=== PATIENT | male | born 1960 | race Caucasian/White ===

== ENCOUNTER 2021-09-08 16:47 | Outpatient (REF) | payer OTHER, SELFPAY | END 2021-09-08 16:48 | disposition home or self-care (01) | LOC: HO.LAB 16:47 | PROVIDERS: Visit Provider Physician Assistant Medical | DX: R30.0 Dysuria (principal) | CPT/HCPCS: 87086 ==

== ENCOUNTER 2022-01-17 10:08 | Emergency (ER) | payer OTHER, SELFPAY ==
--- NOTE | ~2022-01-17 | CT_ITS ---
EXAMINATION: CT ABDOMEN AND PELVIS WITH CONTRAST CLINICAL INFORMATION: Left lower quadrant pain and diarrhea COMPARISON: Previous CT of the abdomen and pelvis July 2017 and ultrasound of the abdomen August 2018 TECHNIQUE: Multidetector volumetric images were obtained from the superior aspect of the liver through the pubic symphysis following administration 85 mL of Omnipaque 350 intravenous contrast. Sagittal and coronal reformatted images were obtained on the technologist's workstation. Oral contrast: Yes This CT examination was performed using dose optimization techniques as appropriate, variously including the following: *Automated exposure control *Adjustment of mA and/or kV according to patient size (this includes techniques or standardized protocols for targeted exams where dose is matched to indication/reason for exam; i.e. extremities or head) *Use of iterative reconstruction technique DLP: 550 mGy-cm FINDINGS: LUNG BASES: The visualized lung bases are unremarkable. LIVER, GALLBLADDER, AND BILIARY TREE: There is a small 1 cm cyst in the medial segment of the left lobe of the liver axial image 18 series 3. The liver is otherwise unremarkable. There is question of a tiny gallstone in the gallbladder. The gallbladder is otherwise unremarkable. There is no biliary duct dilatation. PANCREAS: Unremarkable. SPLEEN: Unremarkable. ADRENAL GLANDS: Unremarkable. KIDNEYS AND URETERS: There are multiple bilateral low-attenuation renal lesions compatible with cysts. There is a 5 x 10 mm lesion exophytic to the lateral midpole right kidney. Hounsfield units postcontrast measure 61 not compatible with a simple cyst. This uncertain whether this represents a complex cyst or solid lesion. This is similar in size to July 2017 exam. There is a small nonobstructing stone in the lower pole of the right kidney. BLADDER: Unremarkable. GASTROINTESTINAL TRACT: There is diverticulosis of the colon. No evidence of diverticulitis or colitis is seen. The small and large bowel is otherwise unremarkable. The appendix is not seen. ABDOMINAL WALL: No significant hernia is appreciated. LYMPH NODES: Normal. VASCULAR: Unremarkable. PELVIC VISCERA: Unremarkable. OSSEOUS STRUCTURES: There are degenerative changes of the spine. CT/CT abdomen pelvis w con IMPRESSION: Diverticulosis of the colon. No evidence of diverticulitis or colitis. Bilateral renal simple cysts. 5 x 10 mm indeterminate lesion exophytic to the lateral midpole of the right kidney. It is uncertain whether this represents a complex cyst or solid lesion. Dedicated renal imaging with and without contrast or targeted ultrasound recommended. Small nonobstructing right renal stone. Question tiny gallstone. Stable small liver cyst. Fleischner guidelines were followed.
[2022-01-17 10:15] VITALS: BP 130/86; PULSE 118; RESP 16; TEMP 36.1; O2SAT 99; BMI 27.1
--- NOTE | 2022-01-17 10:32 | ED_ITS ---
HPI - Nausea/Vomiting/Diarrhea General Chief complaint: Nausea/Vomiting/Diarrhea Stated complaint: diarrhea Time Seen by Provider: 01/17/22 10:27 Source: patient Mode of arrival: ambulatory Limitations: no limitations History of Present Illness HPI Narrative: no sick contacts, no recent abx use, states he ate a lot of junk food MD elicited complaint: diarrhea and abdominal pain Onset (ago): day(s) (yesterday ) Associated nausea: Yes Associated abdominal pain: Yes Location of pain: RLQ, LLQ and suprapubic Pain consistency: intermittent Severity: moderate Quality: cramping Exacerbating factors: bowel movement Relieving factors: none Associated symptoms: loss of appetite, malaise and nausea/vomiting Treatment prior to arrival: other (pepto bismol) Related Data Previous Rx's Medication Instructions Recorded quetiapine 50 mg tablet 50 mg PO TID 30 Days #90 tab 03/31/21 doxycycline hyclate 100 mg tablet 100 mg PO BID 10 Days #20 tab 09/08/21 Allergies Allergy/AdvReac Type Severity Reaction Status Date / Time Penicillins [PENICILLINS] Allergy Intermediate RASH Verified 09/08/21 16:32 Review of Systems Review of Systems: Constitutional : No Weight loss, No Fever, No Chills ENT/Mouth : No sore throat, No Rhinorrhea Eyes: No Swelling, No Redness Cardiovascular : No Chest Pain, No SOB, NoEdema Respiratory : No Cough, No Sputum, No Wheezing Gastrointestinal : Positive Nausea, no Vomiting, positive Diarrhea, positive abdominal Pain, No Hematochezia, No Melena Genitourinary : No Dysuria, No Urinary Frequency, No Hematuria, No Urgency Musculoskeletal : No joint pain, No Myalgias, No Joint Swelling Skin : No Skin Lesions, No rash Neuro : No Weakness, No Numbness, No Dizziness, No Headache Psych : No Anxiety/Panic, No Depression Heme/Lymph: No Bruising, No Lymphadenopathy Endocrine : No Polyuria, No Polydipsia All other systems reviewed and are negative. Gastrointestinal: Gastrointestinal: Reports nausea PMFSH Past Medical History Attestation statement: The following information was validated with the patient. Medical History Skin lesion Transaminitis Family History Family History (Updated 10/31/20 @ 13:22 by Anamaris Rhodes, RMA) Father Colon cancer Mother Diabetes Social History Social History (Updated 01/17/22 @ 11:03 by Cecily Rodriguez DO) Alcohol intake: never Patient Tobacco Use Status: Never used Tobacco Advance Directives: No Advance Directives Information Provided: No Physical Exam Vital Signs: Vital Signs: Last Vital Signs Temp 98.6 F 01/17/22 13:43 Pulse 104 H 01/17/22 13:43 Resp 16 01/17/22 13:43 BP 126/81 01/17/22 13:43 Pulse Ox 98 01/17/22 13:43 BMI result Body Mass Index 27.1 Appearance: Alert. Oriented X3. No acute distress. Eyes: Pupils equal, round and reactive to light. ENT: Pharynx normal. Neck: Normal inspection. Neck supple. CVS: Normal heart rate and rhythm. Pulses normal. Respiratory: No respiratory distress. Breath sounds normal. Abdomen: Soft and very mild LLQ ttp no rebound or guarding Skin: Skin warm and dry. Normal skin color. Normal skin turgor. Extremities: No lower extremity edema. No calf ttp Neuro: Oriented X 3. No motor deficit. No sensory deficit. Course Course Course Narrative: no acute findings on CT scan, LFTs at baseline MDM - Nausea/Vomiting/Diarrhea MDM Narrative Medical decision making narrative: 61 yo male with hx of UTI comes in with lower abdominal pain and diarrhea - no risk factors for diarrhea has mild LLQ pain at this time will obtain basic labs, hydrate IV morphine for pain, CT scan for diverticulitis. Dispo per results and findings. Lab Data Result diagrams: 01/17/22 11:16 01/17/22 11:16 Labs: Lab Results 01/17/22 01/17/22 01/17/22 Range/Units 11:16 11:16 11:16 WBC 6.9 (4.8-10.8) X10*3/uL RBC 5.44 (4.60-5.80) X10*6/uL Hgb 16.6 (14.0-18.0) g/dl Hct 49.2 (42.0-52.0) % MCV 90.4 (80.0-98.0) fL MCH 30.5 (27.0-33.0) pg MCHC 33.7 (31.0-36.0) g/dl RDW 12.8 (11.0-16.0) % Plt Count 153 L (160-400) X10*3/uL MPV 8.9 L (9.4-12.4) fL Immature Gran % (Auto) 0.4 (0.0-0.4) % Neut % (Auto) 85.4 H (45-73) % Lymph % (Auto) 7.1 L (20-40) % [place] % (Auto) 6.1 (2-11) % Eos % (Auto) 0.9 (0-4) % Baso % (Auto) 0.1 (0-2) % Lymph # (Auto) 0.5 L (1.2-4.9) X10*3/uL [place] # (Auto) 0.4 (0.1-1.2) X10*3/uL Eos # (Auto) 0.1 (0.0-0.4) X10*3/uL Baso # (Auto) 0.0 (0.0-0.2) X10*3/uL Abs Immat Gran (auto) 0.03 (0.00-0.03) X10*3/uL Absolute Neuts (auto) 5.9 (2.0-8.3) x10*3/uL Absolute Nucleated RBC 0.000 (0.0-0.012) X10*3/uL Nucleated RBC % (auto) 0.0 (0.0-0.2) /100WBC Sodium 137 (135-145) mmol/L Potassium 4.9 (3.3-5.1) mmol/L Chloride 104 (96-108) mmol/L Carbon Dioxide 25 (22-29) mmol/L Anion Gap 13 (12-20) BUN 20 H (9-16) mg/dL Creatinine 1.10 (0.5-1.4) mg/dL Estim Creat Clear Calc 65.2 Estimated GFR > 60 Random Glucose 128 H (60-115) mg/dL Lactic Acid (0.5-2.0) mmol/L Calcium 9.3 (8.4-10.2) mg/dL Magnesium 2.0 (1.6-2.6) mg/dL Total Bilirubin 1.5 H (0.0-1.0) mg/dL Direct Bilirubin 0.5 (0.0-0.5) mg/dL AST 44 H (5-37) U/L ALT 55 H (0-40) U/L Alkaline Phosphatase 88 (39-117) U/L Total Protein 8.2 H (6.5-8.0) g/dL Albumin 4.5 (3.5-5.0) g/dL Lipase 18 (8-78) U/L Urine Color Urine Appearance Urine pH (5.0-8.0) Ur Specific [place] (1.005-1.025) Urine Protein (NEG-TRACE) MG/DL Urine Glucose (UA) (NEG) MG/DL Urine Ketones (NEG) MG/DL Urine Blood (NEG) Urine Nitrite (NEG) Ur Leukocyte Esterase (NEG) COVID-19 ([facility]) Negative (Negative) COVID-19 Clin Com See Note 01/17/22 01/17/22 Range/Units 11:16 11:20 WBC (4.8-10.8) X10*3/uL RBC (4.60-5.80) X10*6/uL Hgb (14.0-18.0) g/dl Hct (42.0-52.0) % MCV (80.0-98.0) fL MCH (27.0-33.0) pg MCHC (31.0-36.0) g/dl RDW (11.0-16.0) % Plt Count (160-400) X10*3/uL MPV (9.4-12.4) fL Immature Gran % (Auto) (0.0-0.4) % Neut % (Auto) (45-73) % Lymph % (Auto) (20-40) % [place] % (Auto) (2-11) % Eos % (Auto) (0-4) % Baso % (Auto) (0-2) % Lymph # (Auto) (1.2-4.9) X10*3/uL [place] # (Auto) (0.1-1.2) X10*3/uL Eos # (Auto) (0.0-0.4) X10*3/uL Baso # (Auto) (0.0-0.2) X10*3/uL Abs Immat Gran (auto) (0.00-0.03) X10*3/uL Absolute Neuts (auto) (2.0-8.3) x10*3/uL Absolute Nucleated RBC (0.0-0.012) X10*3/uL Nucleated RBC % (auto) (0.0-0.2) /100WBC Sodium (135-145) mmol/L Potassium (3.3-5.1) mmol/L Chloride (96-108) mmol/L Carbon Dioxide (22-29) mmol/L Anion Gap (12-20) BUN (9-16) mg/dL Creatinine (0.5-1.4) mg/dL Estim Creat Clear Calc Estimated GFR Random Glucose (60-115) mg/dL Lactic Acid 0.9 (0.5-2.0) mmol/L Calcium (8.4-10.2) mg/dL Magnesium (1.6-2.6) mg/dL Total Bilirubin (0.0-1.0) mg/dL Direct Bilirubin (0.0-0.5) mg/dL AST (5-37) U/L ALT (0-40) U/L Alkaline Phosphatase (39-117) U/L Total Protein (6.5-8.0) g/dL Albumin (3.5-5.0) g/dL Lipase (8-78) U/L Urine Color YELLOW Urine Appearance HAZY Urine pH 5.0 (5.0-8.0) Ur Specific [place] >= 1.030 H (1.005-1.025) Urine Protein TRACE (NEG-TRACE) MG/DL Urine Glucose (UA) NEG (NEG) MG/DL Urine Ketones NEG (NEG) MG/DL Urine Blood NEG (NEG) Urine Nitrite NEG (NEG) Ur Leukocyte Esterase NEG (NEG) COVID-19 ([facility]) (Negative) COVID-19 Clin Com Discharge Plan Discharge Clinical Impression: Diarrhea Qualifiers: Diarrhea type: unspecified type Qualified Code(s): R19.7 - Diarrhea, unspecified Patient Disposition: Home, Self-Care Instructions: Acute Diarrhea (ED) Additional Instructions: return to ED for any worsening symptoms or concerns Diverticulosis of the colon. No evidence of diverticulitis or colitis. Bilateral renal simple cysts. 5 x 10 mm indeterminate lesion exophytic to the lateral midpole of the right kidney. It is uncertain whether this represents a complex cyst or solid lesion. Dedicated renal imaging with and without contrast or targeted ultrasound recommended. Small nonobstructing right renal stone. Question tiny gallstone. Stable small liver cyst. Prescriptions: No Action quetiapine 50 mg tablet 50 mg PO TID 30 Days Qty: 90 3RF doxycycline hyclate 100 mg tablet 100 mg PO BID 10 Days Qty: 20 0RF Referrals: Ame Cervantes MD [Primary Care Provider] - 5 days (RENAL ULTRASOUND) Stand Alone Forms: Work/School Release Print Language: Upper Sorbian
[2022-01-17 11:22] LABS: MANUAL DIFF FLAG NO
[2022-01-17 11:23] LABS: Basophils Percent Auto 0.1 % (0-2); Eosinophils Absolute Auto 0.1 X10*3/uL (0.0-0.4); Eosinophils Percent Auto 0.9 % (0-4); Hematocrit 49.2 % (42.0-52.0); Hemoglobin 16.6 g/dl (14.0-18.0); Imm Gran Abs Auto 0.03 X10*3/uL (0.00-0.03); Imm Gran Pct Auto 0.4 % (0.0-0.4); Lymphocytes Absolute Auto 0.5 X10*3/uL (1.2-4.9); Lymphocytes Percent Auto 7.1 % (20-40); Mean Corpuscular HGB Conc 33.7 g/dl (31.0-36.0); Mean Corpuscular Hemoglobin 30.5 pg (27.0-33.0); Mean Corpuscular Volume 90.4 fL (80.0-98.0); Mean Platelet Volume 8.9 fL (9.4-12.4); Monocytes Absolute Auto 0.4 X10*3/uL (0.1-1.2); Monocytes Percent Auto 6.1 % (2-11); Neutrophils Absolute Auto 5.9 x10*3/uL (2.0-8.3); Neutrophils Percent Auto 85.4 % (45-73); Platelet Count 153 X10*3/uL (160-400); Red Blood Count 5.44 X10*6/uL (4.60-5.80); Red Cell Distribution Width 12.8 % (11.0-16.0); White Blood Count 6.9 X10*3/uL (4.8-10.8)
[2022-01-17] MEDS: ondansetron HCL 4 MG/2 ML VIAL IVPUSH (11:34)
[2022-01-17] MEDS: Morphine Sulfate 4 MG/ML CARTRIDGE IVPUSH (11:34)
[2022-01-17] MEDS: 0.9 % Sodium Chloride 1,000 ML 999 ML IVCONT (11:35)
[2022-01-17 11:38] LABS: Lactic Acid 0.9 mmol/L (0.5-2.0)
[2022-01-17 11:38] LABS: Appearance Urine HAZY; Color Urine YELLOW; Glucose Urine UA NEG (NEG); Leukocyte Esterase Urine NEG (NEG); Nitrite Urine NEG (NEG); Specific Gravity - Urine >= 1.030 (1.005-1.025); Urine Blood NEG (NEG); Urine Ketones NEG (NEG); Urine Protein TRACE MG/DL (NEG-TRACE)
[2022-01-17 11:39] LABS: COVID-19 Test Negative (Negative)
[2022-01-17 11:44] LABS: Alanine Aminotransferase 55 U/L (0-40); Albumin Level 4.5 g/dL (3.5-5.0); Alkaline Phosphatase 88 U/L (39-117); Anion Gap 13 (12-20); Aspartate Amino Transferase 44 U/L (5-37); Bilirubin Direct 0.5 mg/dL (0.0-0.5); Bilirubin Total 1.5 mg/dL (0.0-1.0); Blood Urea Nitrogen 20 mg/dL (9-16); Calcium 9.3 mg/dL (8.4-10.2); Carbon Dioxide 25 mmol/L (22-29); Chloride 104 mmol/L (96-108); Creatinine Clr Calc Pharmacy 65.2; Estimated Glomerular Filt Rate > 60; Glucose Random 128 mg/dL (60-115); Lipase 18 U/L (8-78); Potassium 4.9 mmol/L (3.3-5.1); Sodium 137 mmol/L (135-145); Total Protein 8.2 g/dL (6.5-8.0)
[2022-01-17 12:14] VITALS: BP 142/88; PULSE 102; RESP 13; TEMP 37.2; O2SAT 98
[2022-01-17] MEDS: iohexoL 350 MG/ML 100 ML INFUS..BTL IV (13:06)
[2022-01-17 13:43] VITALS: BP 126/81; PULSE 104; RESP 16; TEMP 37; O2SAT 98
[2022-01-17 15:09] VITALS: BP 125/65; PULSE 90; RESP 17; TEMP 36.6; O2SAT 97
== END 2022-01-17 15:11 | disposition home or self-care (01) ==
PROVIDERS: Emergency Provider Emergency Medicine; PCP Internal Medicine
DX: R19.7 Diarrhea, unspecified (principal); Z20.822 Contact with and (suspected) exposure to COVID-19
CPT/HCPCS: 36415; 74177; 80048; 80076; 81003; 83605; 83690; 83735; 85025; 87635; 96361; 96374; 96375; 99284; J2270; J2405; Q9967

== ENCOUNTER 2022-01-18 22:12 | Emergency (ER) | payer OTHER, SELFPAY ==
--- NOTE | ~2022-01-18 | CT_ITS ---
EXAMINATION: CT ABDOMEN AND PELVIS WITH CONTRAST CLINICAL INFORMATION: Worsening abdominal pain and diarrhea COMPARISON: 01/17/2022 TECHNIQUE: Multidetector volumetric images were obtained from the superior aspect of the liver through the pubic symphysis following administration 85 mL of Omnipaque 350 intravenous contrast. Sagittal and coronal reformatted images were obtained on the technologist's workstation. Oral contrast: No This CT examination was performed using dose optimization techniques as appropriate, variously including the following: *Automated exposure control *Adjustment of mA and/or kV according to patient size (this includes techniques or standardized protocols for targeted exams where dose is matched to indication/reason for exam; i.e. extremities or head) *Use of iterative reconstruction technique DLP: 547 mGy-cm FINDINGS: LUNG BASES: The visualized lung bases are unremarkable. LIVER, GALLBLADDER, AND BILIARY TREE: The liver is normal in size, shape, and attenuation. There is a 1.2 cm cyst in the anterior subcapsular aspect of the medial segment. No suspicious liver lesions. No intra or extrahepatic biliary ductal dilatation is present. Gallbladder unremarkable. Layering density within the gallbladder may reflect vicariously excreted contrast from the previous exam 2 days ago PANCREAS: Unremarkable. SPLEEN: Unremarkable. ADRENAL GLANDS: Unremarkable. KIDNEYS AND URETERS: The kidneys are normal in size, shape, and attenuation. No hydronephrosis or hydroureter. Punctate nonobstructive calculus present in the lower pole right kidney. Bilateral renal cysts redemonstrated. Stable indeterminant 10 mm exophytic lesion emanating from the lateral interpolar cortex of the right kidney measuring 62 Hounsfield units. No perinephric stranding. BLADDER: Unremarkable. GASTROINTESTINAL TRACT: Left colonic diverticulosis without evidence of diverticulitis. Normal appendix, long and gracile. Stomach unremarkable. ABDOMINAL WALL: No significant hernia is appreciated. LYMPH NODES: Normal. VASCULAR: Aorta is atherosclerotic but normal caliber. Patent vascular structures.. PELVIC VISCERA: Unremarkable. OSSEOUS STRUCTURES: No acute or suspicious osseous abnormalities. CT/CT abdomen pelvis w con IMPRESSION: * No potential etiology for the patient's symptomatology is identified. * Left colonic diverticulosis without evidence of diverticulitis. * Indeterminant 10 mm exophytic lesion, lateral interpolar cortex right kidney. A CT renal mass protocol or MRI could lend further specificity. * Punctate nonobstructive right renal stone.
[2022-01-18 23:45] VITALS: BP 129/82; PULSE 82; RESP 15; TEMP 36.6; O2SAT 97; BMI 28.7
--- NOTE | 2022-01-19 00:13 | ED_ITS ---
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 Mode of arrival: ambulatory Limitations: no limitations History of Present Illness HPI narrative: just seen 01/[address] scan normal labs sent home with precautions negative COVID since then still has abdominal cramping with 10 stools per day taking pepto bismol without relief MD elicited complaint: abdominal pain (diarrhea) Pertinent past history: other (just had negative CT scan 01/17 for same symptoms) Onset (ago): day(s) (01/16) Pain Consistency: intermittent Location: diffuse Severity: moderate Quality: cramping Radiation: none Migration to: no migration Exacerbating factors: eating Relieving factors: nothing Context: other (states it started after eating heavy rich foods) Associated symptoms: diarrhea Treatments prior to arrival: other (pepto bismol) Related Data Previous Rx's Medication Instructions Recorded quetiapine 50 mg tablet 50 mg PO TID 30 Days #90 tab 03/31/21 doxycycline hyclate 100 mg tablet 100 mg PO BID 10 Days #20 tab 09/08/21 Allergies Allergy/AdvReac Type Severity Reaction Status Date / Time Penicillins [PENICILLINS] Allergy Intermediate RASH Verified 09/08/21 16:32 Review of Systems Review of Systems Constitutional : No Weight loss, No Fever, No Chills ENT/Mouth : No sore throat, No Rhinorrhea Eyes: No Swelling, No Redness Cardiovascular : No Chest Pain, No SOB, No edema Respiratory : No Cough, No Sputum, No Wheezing Gastrointestinal : no Nausea, no Vomiting, positive Diarrhea, positive abdominal Pain, No Hematochezia, No Melena Genitourinary : No Dysuria, No Urinary Frequency, No Hematuria, No Urgency Musculoskeletal : No joint pain, No Myalgias, No Joint Swelling Skin : No Skin Lesions, No rash Neuro : No Weakness, No Numbness, No Dizziness, No Headache Psych : No Anxiety/Panic, No Depression Heme/Lymph: No Bruising, No Lymphadenopathy Endocrine : No Polyuria, No Polydipsia All other systems reviewed and are negative. [facility] Past Medical History Attestation statement: The following information was validated with the patient. Medical History Skin lesion Transaminitis Family History Family History (Updated 10/31/20 @ 13:22 by VAHE Kong) Father Colon cancer Mother Diabetes Social History Social History Alcohol intake: never Patient Tobacco Use Status: Never used Tobacco Advance Directives: No Physical Exam ED Vital Signs: Vital Signs - 24 hr 01/18/22 23:45 01/19/22 00:32 Temperature 98 F 98.5 F Pulse Rate 82 75 Respiratory Rate 15 22 H Blood Pressure 129/82 134/81 Pulse Oximetry 97 98 BMI result Body Mass Index 28.7 Appearance: Alert. Oriented X3. No acute distress. Eyes: Pupils equal, round and reactive to light. ENT: Pharynx normal. Neck: Normal inspection. Neck supple. CVS: Normal heart rate and rhythm. Pulses normal. Respiratory: No respiratory distress. Breath sounds normal. Abdomen: Mildly distended with moderate diffuse ttp no rebound or guarding Skin: Skin warm and dry. Normal skin color. Normal skin turgor. Extremities: No lower extremity edema. No calf ttp Neuro: Oriented X 3. No motor deficit. No sensory deficit. Course Course Course Narrative: drop in H/H denies GIB symptoms patient refusing rectal exam to check for bleeding 3 bouts of feeling like he has to have BM - unable to go still having cramping at this time given distention will obtain repeat imaging to eval for colitis/dilation signed out to Dr. Whittington pending further workup MDM - Abdominal Pain MDM Narrative Medical decision making narrative: 61 yo male with no sig PMH here with abdominal cramping and diarrhea since 01/16 reports started after eating lots of heavy food - no recent antibiotic use. He is taking pepto bismol without relief. No other precipitating events. At this time will repeat labs, stool studies, pending any significant lab derangements will hold imaging. IVF and IV morphine for symptom control. Lab Data Result diagrams: 01/19/22 00:43 01/19/22 00:43 Labs: Lab Results 01/19/22 Range/Units 00:43 WBC 5.7 (4.8-10.8) X10*3/uL RBC 4.49 L (4.60-5.80) X10*6/uL Hgb 13.7 L (14.0-18.0) g/dl Hct 39.8 L (42.0-52.0) % MCV 88.6 (80.0-98.0) fL MCH 30.5 (27.0-33.0) pg MCHC 34.4 (31.0-36.0) g/dl RDW 12.7 (11.0-16.0) % Plt Count 147 L (160-400) X10*3/uL MPV 9.2 L (9.4-12.4) fL Immature Gran % (Auto) 0.3 (0.0-0.4) % Neut % (Auto) 53.5 (45-73) % Lymph % (Auto) 30.0 (20-40) % [place] % (Auto) 12.7 H (2-11) % Eos % (Auto) 3.3 (0-4) % Baso % (Auto) 0.2 (0-2) % Lymph # (Auto) 1.7 (1.2-4.9) X10*3/uL [place] # (Auto) 0.7 (0.1-1.2) X10*3/uL Eos # (Auto) 0.2 (0.0-0.4) X10*3/uL Baso # (Auto) 0.0 (0.0-0.2) X10*3/uL Abs Immat Gran (auto) 0.02 (0.00-0.03) X10*3/uL Absolute Neuts (auto) 3.1 (2.0-8.3) x10*3/uL Absolute Nucleated RBC 0.000 (0.0-0.012) X10*3/uL Nucleated RBC % (auto) 0.0 (0.0-0.2) /100WBC Discharge Plan Discharge Clinical Impression: Abdominal pain Qualifiers: Abdominal location: generalized Qualified Code(s): R10.84 - Generalized abdominal pain Diarrhea Qualifiers: Diarrhea type: unspecified type Qualified Code(s): R19.7 - Diarrhea, unspecified Patient Disposition: Still a Patient Prescriptions: No Action quetiapine 50 mg tablet 50 mg PO TID 30 Days Qty: 90 3RF doxycycline hyclate 100 mg tablet 100 mg PO BID 10 Days Qty: 20 0RF
[2022-01-19 00:32] VITALS: BP 134/81; PULSE 75; RESP 22; TEMP 36.9; O2SAT 98
[2022-01-19 00:48] LABS: MANUAL DIFF FLAG NO
[2022-01-19] MEDS: Morphine Sulfate 4 MG/ML CARTRIDGE IVPUSH (00:49)
[2022-01-19 00:50] LABS: Basophils Percent Auto 0.2 % (0-2); Eosinophils Absolute Auto 0.2 X10*3/uL (0.0-0.4); Eosinophils Percent Auto 3.3 % (0-4); Hematocrit 39.8 % (42.0-52.0); Hemoglobin 13.7 g/dl (14.0-18.0); Imm Gran Abs Auto 0.02 X10*3/uL (0.00-0.03); Imm Gran Pct Auto 0.3 % (0.0-0.4); Lymphocytes Absolute Auto 1.7 X10*3/uL (1.2-4.9); Mean Corpuscular HGB Conc 34.4 g/dl (31.0-36.0); Mean Corpuscular Hemoglobin 30.5 pg (27.0-33.0); Mean Corpuscular Volume 88.6 fL (80.0-98.0); Mean Platelet Volume 9.2 fL (9.4-12.4); Monocytes Absolute Auto 0.7 X10*3/uL (0.1-1.2); Monocytes Percent Auto 12.7 % (2-11); Neutrophils Absolute Auto 3.1 x10*3/uL (2.0-8.3); Neutrophils Percent Auto 53.5 % (45-73); Platelet Count 147 X10*3/uL (160-400); Red Blood Count 4.49 X10*6/uL (4.60-5.80); Red Cell Distribution Width 12.7 % (11.0-16.0); White Blood Count 5.7 X10*3/uL (4.8-10.8)
[2022-01-19] MEDS: 0.9 % Sodium Chloride 1,000 ML 999 ML IV (00:51)
[2022-01-19 01:59] LABS: Alanine Aminotransferase 60 U/L (0-40); Albumin Level 3.9 g/dL (3.5-5.0); Alkaline Phosphatase 70 U/L (39-117); Anion Gap 11 (12-20); Aspartate Amino Transferase 53 U/L (5-37); Bilirubin Direct 0.3 mg/dL (0.0-0.5); Bilirubin Total 0.8 mg/dL (0.0-1.0); Blood Urea Nitrogen 14 mg/dL (9-16); C Reactive Protein 2.92 mg/dL (< or = 0.50); Calcium 8.5 mg/dL (8.4-10.2); Carbon Dioxide 27 mmol/L (22-29); Chloride 104 mmol/L (96-108); Creatinine Clr Calc Pharmacy 94.5; Estimated Glomerular Filt Rate > 60; Glucose Random 96 mg/dL (60-115); Lipase 39 U/L (8-78); Magnesium 2.1 mg/dL (1.6-2.6); Potassium 4.5 mmol/L (3.3-5.1); Sodium 137 mmol/L (135-145)
[2022-01-19] MEDS: iohexoL 350 MG/ML 100 ML INFUS..BTL 85 ML IV (02:31)
[2022-01-19] MEDS: 0.9 % Sodium Chloride 500 ML IV (02:48)
[2022-01-19 02:54] VITALS: BP 130/78; PULSE 66; RESP 18; O2SAT 99
[2022-01-19] MEDS: Dicyclomine HCl 10 MG CAPSULE PO (04:19)
[2022-01-19 04:20] VITALS: BP 116/74; PULSE 71; RESP 16; TEMP 36.9; O2SAT 98
== END 2022-01-19 04:39 | disposition home or self-care (01) ==
PROVIDERS: Emergency Provider Emergency Medicine; PCP Internal Medicine
DX: R10.84 Generalized abdominal pain (principal); R19.7 Diarrhea, unspecified
CPT/HCPCS: 36415; 74177; 80048; 80076; 83690; 83735; 85025; 86140; 96361; 96374; 99284; J2270; Q9967

== ENCOUNTER 2022-10-12 09:24 | Outpatient (REF) | payer OTHER, SELFPAY ==
[2022-10-12 10:53] LABS: Alanine Aminotransferase 76 U/L (0-40); Albumin Level 4.4 g/dL (3.5-5.0); Alkaline Phosphatase 105 U/L (39-117); Anion Gap 16 (12-20); Aspartate Amino Transferase 56 U/L (5-37); Bilirubin Total 0.8 mg/dL (0.0-1.0); Blood Urea Nitrogen 18 mg/dL (9-16); Calcium 9.2 mg/dL (8.4-10.2); Carbon Dioxide 24 mmol/L (22-29); Chloride 105 mmol/L (96-108); Cholesterol 206 mg/dL; Estimated Glomerular Filt Rate > 60; Glucose Fasting 102 mg/dL (60-99); HDL Cholesterol 36 mg/dL; LDL Cholesterol Calculated 146 mg/dl; Potassium 4.5 mmol/L (3.3-5.1); Sodium 140 mmol/L (135-145); Total Protein 7.8 g/dL (6.5-8.0); Triglycerides 120 mg/dL
== END 2022-10-12 09:25 | disposition home or self-care (01) ==
LOC: HO.LAB 09:24
PROVIDERS: PCP Internal Medicine; Visit Provider Internal Medicine
DX: R74.01 Elevation of levels of liver transaminase levels (principal); E78.5 Hyperlipidemia, unspecified
CPT/HCPCS: 36415; 80053; 80061

== ENCOUNTER 2023-08-14 10:22 | Outpatient (AMB) | payer OTHER, SELFPAY ==
--- NOTE | 2023-08-14 10:23 | MHC.OFFWIV ---
Intake Vital Signs 08/14/23 10:25 Height 5 ft 6 in Weight 190 lb BMI 30.7 BP 122/78 Blood Pressure Location Rt brachial Position Sitting Pulse 80 Pulse Source Pulse Oximeter Pulse Oximetry (%) 97 Oxygen Delivery Method Room Air Intake Visit Reasons: EST, back pain Intake Note: Patient here for back pain which has been bothersome for about 1 week, he states he was helping a friend lift something and was very heavy and since then he has had this pain. Patient Tobacco Use Status: Never used Tobacco Allergies Penicillins [PENICILLINS] Allergy (Intermediate, Verified 08/14/23 10:27) RASH Do you need a note to return to daycare/school/sports/work: No HPI EST, back pain HPI Details 62-year-old male patient presents today with a one-week history of lower back pain and tightness. He states he was lifting a heavy item in his house, and felt a strain in his lower back. He denies any radiation or weakness down legs, no tingling or numbness, no bowel or bladder dysfunction, no saddle anesthesia. States pain is worse when trying to lift anything, for when twisting from side to side. Has not used any treatment for at this point. ON LICENSE OF [facility] Medical History Skin lesion Transaminitis Family History Father Colon cancer Mother Diabetes Social History Alcohol intake: never Patient Tobacco Use Status: Never used Tobacco Review of Systems Const All systems reviewed & are unremarkable except as noted in HPI and below Physical Exam Vital Signs: Last Vital Signs Pulse 80 08/14/23 10:25 BP 122/78 08/14/23 10:25 Pulse Ox 97 08/14/23 10:25 Oxygen Delivery Method Room Air 08/14/23 10:25 BMI result Body Mass Index 30.7 Const General: cooperative, healthy appearing and no acute distress Resp Effort & Inspection: normal respiratory effort and able to speak in complete sentences Auscultation: clear to auscultation bilaterally Cardio Jugular venous distension: no JVD Palpation: normal PMI Rate: regular rate Rhythm: regular rhythm Back/Spine/Pelvis Other: No vertebral tenderness, straight leg test negative bilaterally Cervical Spine: normal cervical lordosis and cervical ROM normal Thoracic/Lumbar Spine: thoracic and lumbar spine normal to inspection, pain with thoraco-lumbar ROM (Pain with lateral rotation, normal flexion) and paraspinal muscle tenderness bilaterally in the mid lumbar and in the lower lumbar Skin General skin exam: no rashes or lesions noted Neuro General: gait normal and deep tendon reflexes 2+ bilaterally Extrem General: Yes capillary refill normal and Yes no clubbing, cyanosis or edema Psych Appearance: grossly normal Mental Status: mental status grossly normal Speech and movement: Normal speech and movement present Assessment & Plan Assessment & Plan (1) Strain of fascia of lower back: Code(s): S39.012A - Strain of muscle, fascia and tendon of lower back, initial encounter Plan: Patient sustained a lifting injury last week. He does not have any radicular symptoms. Pain appears muscular in nature at this time. Will start him on a short course of prednisone, and muscle relaxers p.r.n. at bedtime. We reviewed indications, use, possible side effects of medications. Advised to apply heating pads intermittently over the next few days, and perform gentle stretching exercises as tolerated. If he does not improve with treatment, or if symptoms worsen or new symptoms develop, he should return to the clinic for further evaluation. He verbalizes understanding and agrees to plan. (2) Lower back pain: Code(s): M54.50 - Low back pain, unspecified Qualifiers: Chronicity: acute Back pain laterality: bilateral Sciatica presence: without sciatica Qualified Code(s): M54.50 - Low back pain, unspecified Medications: New prednisone Take twice a day for 5 days. Do not take in the evening. 20 mg PO BID 5 days 10 tabs 0RF M54.50 - Low back pain, unspecified, S39.012A - Strain of muscle, fascia and tendon of lower back, initial encounter cyclobenzaprine Take once a day at bedtime as needed for muscle pain/spasms for 5 days. 10 mg PO TID 5 days PRN 5 tabs 0RF muscle spasm M54.50 - Low back pain, unspecified, S39.012A - Strain of muscle, fascia and tendon of lower back, initial encounter Coding Level of Care Code Est Pt Level 3 (72413) Diagnoses Strain of fascia of lower back S39.012A Acute bilateral low back pain without sciatica M54.50 Chronicity: acute Back pain laterality: bilateral Sciatica presence: without sciatica
[2023-08-14 10:25] VITALS: BP 122/78; PULSE 80; O2SAT 97; BMI 30.7
== END 2023-08-14 10:52 | disposition home or self-care (01) ==
PROVIDERS: PCP Internal Medicine; Visit Provider Nurse Practitioner Family
DX: S39.012A Strain of muscle, fascia and tendon of lower back, initial encounter (principal); M54.50 Low back pain, unspecified
CPT/HCPCS: 99213

== ENCOUNTER 2023-11-15 10:25 | Outpatient (AMB) | payer OTHER, SELFPAY ==
[2023-11-15 10:27] VITALS: BP 130/78; PULSE 61; O2SAT 97; BMI 30.3
--- NOTE | 2023-11-15 10:27 | A.OFFPC_ITS ---
Vital Signs 11/15/23 10:27 Height 5 ft 6 in Weight 188 lb BMI 30.3 BP 130/78 Blood Pressure Location Lt brachial Position Sitting Pulse 61 Pulse Source Pulse Oximeter Pulse Oximetry (%) 97 Oxygen Delivery Method Room Air Intake Visit Reasons: PE Small Products Ii Assembler Required: Yes Small Products Ii Assembler Language: Nepali Allergies Penicillins [PENICILLINS] Allergy (Intermediate, Verified 11/15/23 10:39) RASH Medication List - Last Reconciled 11/15/23 by EDWAR Reyna cyclobenzaprine 10 mg PO BEDTIME PRN 5 days quetiapine 50 mg PO TID 30 days Tobacco use date assessed: 11/15/23 Dental Screening Dental Screen Date: 11/15/23 Did you have a dental visit in the last 12 months?: No Did you have a dental problem in the last 6 months where you did not have access to dental care?: No HPI PE HPI Details Patient is a 62-year-old male who presents today for physical exam. Patient of Dr. Lin, last visit 2019. Medical history significant for muscle spasms, transaminitis. Patient also reports nasal congestion with cold weather, would like treatment for this. He also reports acid reflux, admits to spicy foods. No shortness of breath or chest pain. Patient would like to hold off on tetanus vaccine. Reports colonoscopy 7 years ago 2 polyps removed and repeat in 10 years per pt - reports was done in [place]. Also reports has anxiety/depression on Seroquel and followed by therapist. Patient is a Nepali- speaking and THAI Booth was helping with interpretation. [facility] Medical History (Updated 11/15/23 @ 13:37 by EDWAR Reyna) Dysuria Eye discomfort Conjunctivitis, right eye Skin lesion Transaminitis Family History Father Colon cancer Mother Diabetes Social History Housing: House Alcohol intake: never Patient Tobacco Use Status: Never used Tobacco service: No Current occupational status: unemployed Cognitive needs: No Hearing needs: No Vision needs: No Questionnaire PHQ-9 Over the last 2 weeks, how often have you been bothered by any of the following problems? 1. Little interest or pleasure in doing things: not at all 2. Feeling down, depressed, or hopeless: not at all 3. Trouble falling or staying asleep, or sleeping too much: not at all 4. Feeling tired or having little energy: not at all 5. Poor appetite or overeating: not at all 6. Feeling bad about yourself - or that you are a failure or have let yourself or your family down: not at all 7. Trouble concentrating on things, such as reading the newspaper or watching television: not at all 8. Moving or speaking so slowly that other people could have noticed. Or the o pposite - being so fidgety or restless that you have been moving around a lot more than usual: not at all 9. Thoughts that you would be better off or of hurting yourself in some way: not at all Total score: 0 Depression Screening Interpretation: Negative Depression Screening Done: Yes 88262 - PHQ-9 Billing: Yes Source: Developed by Drs. Constantino Resendez, Marah Zambrano, Kyle Astorga and colleagues, with an educational thu from [employer]. Thrive Questionnaire Date Thrive assessed: 11/15/23 I am a: Patient What is your living situation today?: I have a steady place to live Within the past 12 months, did the food you bought not last and you didn't have the money to get more?: Never true Within the past 12 months, did you worry whether your food would run out before you got money to buy more?: Never true Do you have trouble paying for medicines?: No Do you have trouble getting transportation to medical appointments?: No Do you have trouble paying your heating and electricity bill?: No Do you have trouble taking care of your child, family member or friend?: No Do you have trouble with day-to-day activities such as bathing, preparing meals, shopping, managing finances, etc.?: No Are you currently unemployed and looking for a job?: No Are you interested in more education?: No Currently or been in a relationship where the following occur: no concerns reported AUDIT C Alcohol Use Questionnaire (AUDIT-C) 1. How often do you have a drink containing alcohol?: Never 3. How often do you have six or more drinks on one occasion?: Never Total Score: 0 Score Reviewed/Action Taken: No DEZ-7 AMB Questionnaire DEZ-7 Date DEZ - 7 assessed: 11/15/23 Feeling nervous, anxious, or on edge: 0 = Not at all Not being able to stop or control worryin = Not at all Worrying too much about different things: 0 = Not at all Trouble relaxin = Not at all Being so restless that it is hard to sit still: 0 = Not at all Becoming easily annoyed or irritable: 0 = Not at all Feeling afraid as if something awful might happen: 0 = Not at all Total DEZ-7 score (0-4 normal; 5-9 mild; 10-14 moderate; 15-21 severe): 0 Source: Developed by Drs. Constantino Resendez, Marah Zambrano, Kyle Astorga and colleagues, with an educational thu from [employer]. DEZ-7 Assessment Billing DEZ-7 Assessment Tool: DEZ-7 Assessment 91938 Review of Systems Const Denies body aches, Denies chills, Denies fever(s) and Denies headache(s) Eyes Denies change in vision ENT Denies dizziness, Denies otalgia, Denies headache(s), Reports nasal congestion, Denies nasal discharge, Denies sinus pain and Denies sore throat Card Denies chest pain, Denies edema, Denies lightheadedness and Denies dyspnea Resp Denies cough, Denies dyspnea and Denies wheezing GI Denies abdominal pain, Denies constipation, Reports heartburn, Denies diarrhea, Denies nausea and Denies vomiting Denies dysuria Musc Denies myalgias Skin/Breast Denies rash Neuro Denies dizziness and Denies headache(s) Aller/Immun Denies wheezing Physical exam (Primary Care) Vital Signs: Last Vital Signs Pulse 61 11/15/23 10:27 BP 130/78 11/15/23 10:27 Pulse Ox 97 11/15/23 10:27 Oxygen Delivery Method Room Air 11/15/23 10:27 BMI result Body Mass Index 30.3 Tobacco/Smoking Status: Tobacco use Status Tobacco use date assessed 11/15/23 11/15/23 10:29 Patient Tobacco Use Status Never used Tobacco 11/15/23 10:29 PHQ-9: PHQ-9 Score PHQ-9: Total score 0 11/15/23 10:43 Depression Screening Interpretation: Negative Thrive Assessment: Date of Thrive Assessment Date Thrive assessed 11/15/23 11/15/23 10:29 Currently or been in a relationship where the following occur: no concerns reported Const General: cooperative and no acute distress Orientation/consciousness: patient oriented x3 HENMT Head: Yes normocephalic and Yes atraumatic Ears: TM's normal bilaterally Face and sinus: Yes sinuses nontender Mouth: oropharynx normal and moist mucous membranes Throat: Yes posterior oropharynx normal Eyes General: appearance normal, both eyes and all related structures Pupils: Equal, round and reactive pupils present EOM: EOMs intact bilaterally Neck Neck: Yes normal visual inspection, Yes full ROM and Yes no lymphadenopathy Thyroid: Thyroid normal Resp Effort & Inspection: normal respiratory effort and able to speak in complete sentences Auscultation: clear to auscultation bilaterally, no crackles, no rales, no rhonchi and no wheezes Cardio Rate: regular rate Rhythm: regular rhythm Heart sounds: S1 normal heart sound present, S2 normal heart sound present and no murmurs GI Palpation (GI): Soft to palpation, not firm, nontender, no guarding, not rigid and no hepatosplenomegaly Auscultation: normal bowel sounds General: No CVA tenderness Back/Spine/Pelvis Back: No CVA tenderness Skin General skin exam: no rashes or lesions noted Neuro General: patient oriented x3 Cranial nerves: Yes Equal, round and reactive pupils present Gait exam (Neuro): Normal gait present Extrem General: Yes full ROM and No edema Office Procedures Flu Questionnaire Does the patient have a severe egg allergy?: No Does the patient have severe life threatening allergies?: No Does the patient have a fever or illness today?: No Has the patient ever had Guillain-[place] Syndrome?: No Has the patient ever had any past reaction to a flu shot?: No Immunizations flu vacc [id number] 6mos up(PF) 60 mcg(15 mcgx4)/0.5 mL IM syringe Performing Provider: EDWAR Reyna [facility] [place] 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 0.5 mL IM Left Deltoid 0.5 mL [id number] 05/31/24 81312-821-14 [employer] VIS Given Date VIS Provided VIS Publication Date 11/15/23 Single Vaccine 21 Eligibility Eligibility Date Funding Source Not [facility] [employer] Eligible 11/15/23 Private Assessment and Plan Assessment & Plan (1) GERD (gastroesophageal reflux disease): Code(s): K21.9 - Gastro-esophageal reflux disease without esophagitis Plan: Start omeprazole 20 mg daily Avoid GERD trigger foods Do not lay down 2-3 hours after evening meal Follow-up with PCP if no improvement in 2 months (2) Nasal congestion: Code(s): R09.81 - Nasal congestion Plan: Start Flonase nasal spray and Zyrtec daily (3) Screening for prostate cancer: Code(s): Z12.5 - Encounter for screening for malignant neoplasm of prostate (4) Adult general medical exam: Code(s): Z00.00 - Encounter for general adult medical examination without abnormal findings (5) Transaminitis: Code(s): R74.01 - Elevation of levels of liver transaminase levels Plan: Blood work ordered (6) Muscle spasm: Code(s): M62.838 - Other muscle spasm Plan: Stable with cyclobenzaprine p.r.n. (7) Anxiety and depression: Code(s): F41.9 - Anxiety disorder, unspecified; F32.A - Depression, unspecified Plan: Continue to follow-up with therapist On Seroquel Orders: Orders Vitamin D 25-OH Total Today Z00.00 - Encounter for general adult medical examination without abnormal findings Lipid Panel Today Z00.00 - Encounter for general adult medical examination without abnormal findings Prostate Specific Antigen Today Z12.5 - Encounter for screening for malignant neoplasm of prostate Influenza [id number] Immunization Today Z23 - Encounter for immunization TSH reflex Free T4 Today Z00.00 - Encounter for general adult medical examination without abnormal findings Comprehensive [place]. Panel Fast Today Z00.00 - Encounter for general adult medical examination without abnormal findings Complete Blood Count Auto Diff Today Z00.00 - Encounter for general adult medical examination without abnormal findings Medications: New cetirizine (Zyrtec) 10 mg PO DAILY 30 tabs 2RF allergy symptoms R09.81 - Nasal congestion fluticasone propionate 50 mcg/actuation (Flonase Allergy Relief) administer into each nostril 1 spray intranasal DAILY 100 mL 0RF R09.81 - Nasal congestion omeprazole 20 mg PO DAILY 30 caps 1RF K21.9 - Gastro-esophageal reflux disease without esophagitis Refilled cyclobenzaprine Take once a day at bedtime as needed for muscle pain/spasms for 5 days. 10 mg PO BEDTIME 5 days PRN 5 tabs 0RF muscle spasm M54.50 - Low back pain, unspecified, S39.012A - Strain of muscle, fascia and tendon of lower back, initial encounter Coding Level of Care Code Est Pt Prev Care 40-64y(78676) Diagnoses GERD (gastroesophageal reflux disease) K21.9 Nasal congestion R09.81 Screening for prostate cancer Z12.5 Adult general medical exam Z00.00 Transaminitis R74.01 Muscle spasm M62.838 Anxiety and depression F41.9; F32.A Additional Codes DEZ-7 Assessment Billing - DEZ-7 Assessment Tool: DEZ-7 Assessment [id number] ([id number])
== END 2023-11-15 10:56 | disposition home or self-care (01) ==
PROVIDERS: PCP Internal Medicine; Visit Provider Nurse Practitioner Family
DX: Z00.00 Encounter for general adult medical examination without abnormal findings (principal); K21.9 Gastro-esophageal reflux disease without esophagitis; R09.81 Nasal congestion; Z23 Encounter for immunization; R74.01 Elevation of levels of liver transaminase levels; M62.838 Other muscle spasm; F41.9 Anxiety disorder, unspecified; F32.A Depression, unspecified
CPT/HCPCS: 90471; 90686; 99396

== ENCOUNTER 2023-12-06 11:31 | Outpatient (REF) | payer OTHER, SELFPAY ==
[2023-12-06 11:39] LABS: MANUAL DIFF FLAG NO
[2023-12-06 11:51] LABS: Basophils Percent Auto 0.5 % (0-2); Eosinophils Absolute Auto 0.2 X10*3/uL (0.0-0.4); Eosinophils Percent Auto 3.8 % (0-4); Hematocrit 44.9 % (42.0-52.0); Imm Gran Abs Auto 0.03 X10*3/uL (0.00-0.03); Imm Gran Pct Auto 0.5 % (0.0-0.4); Lymphocytes Absolute Auto 2.1 X10*3/uL (1.2-4.9); Lymphocytes Percent Auto 33.8 % (20-40); Mean Corpuscular HGB Conc 33.4 g/dl (31.0-36.0); Mean Corpuscular Hemoglobin 29.9 pg (27.0-33.0); Mean Corpuscular Volume 89.6 fL (80.0-98.0); Mean Platelet Volume 9.5 fL (9.4-12.4); Monocytes Absolute Auto 0.5 X10*3/uL (0.1-1.2); Monocytes Percent Auto 8.1 % (2-11); Neutrophils Absolute Auto 3.2 x10*3/uL (2.0-8.3); Neutrophils Percent Auto 53.3 % (45-73); Platelet Count 164 X10*3/uL (160-400); Red Blood Count 5.01 X10*6/uL (4.60-5.80); Red Cell Distribution Width 12.8 % (11.0-16.0); White Blood Count 6.1 X10*3/uL (4.8-10.8)
== END 2023-12-06 11:32 | disposition home or self-care (01) ==
LOC: HO.LAB 11:31
PROVIDERS: PCP Internal Medicine; Visit Provider Nurse Practitioner Family
DX: Z00.00 Encounter for general adult medical examination without abnormal findings (principal); Z12.5 Encounter for screening for malignant neoplasm of prostate
CPT/HCPCS: 36415; 80053; 80061; 82306; 84153; 84443; 85025

== ENCOUNTER 2024-07-10 11:12 | Outpatient (REF) | payer OTHER, SELFPAY ==
[2024-07-10 12:02] LABS: Alanine Aminotransferase 102 U/L (0-40); Albumin Level 4.2 g/dL (3.5-5.0); Alkaline Phosphatase 94 U/L (39-117); Anion Gap 10 (12-20); Aspartate Amino Transferase 77 U/L (5-37); Bilirubin Total 0.7 mg/dL (0.0-1.0); Blood Urea Nitrogen 17 mg/dL (9-16); Carbon Dioxide 27 mmol/L (22-29); Chloride 107 mmol/L (96-108); Cholesterol 213 mg/dL (<200); Estimated Glomerular Filt Rate > 60; Glucose Fasting 135 mg/dL (60-99); HDL Cholesterol 37 mg/dL (>40); LDL Cholesterol Calculated 151 mg/dL (<100); Potassium 4.3 mmol/L (3.3-5.1); Sodium 140 mmol/L (135-145); Total Protein 7.6 g/dL (6.5-8.0); Triglycerides 128 mg/dL (<150)
[2024-07-10 12:18] LABS: Vitamin D 25-OH Total 37.5 ng/mL (>30)
== END 2024-07-10 11:13 | disposition home or self-care (01) ==
LOC: HO.LAB 11:12
PROVIDERS: PCP Internal Medicine; Visit Provider Internal Medicine
DX: K21.9 Gastro-esophageal reflux disease without esophagitis (principal); E78.5 Hyperlipidemia, unspecified; E55.9 Vitamin D deficiency, unspecified
CPT/HCPCS: 36415; 80053; 80061; 82306

== ENCOUNTER 2024-11-19 11:02 | Outpatient (AMB) | payer OTHER, SELFPAY ==
--- NOTE | 2024-11-19 11:12 | MHC.PC.OV ---
Vital Signs 11/19/24 11:13 Height 5 ft 6 in Weight 187 lb BMI 30.2 BP 140/78 H Blood Pressure Location Lt brachial Position Sitting Intake Visit Reasons: pe Intake Note: Patient here for a physical exam Side Laster Staple Required: No Accompanied by: Self / Same As Patient Allergies Penicillins [PENICILLINS] Allergy (Intermediate, Verified 11/19/24 11:27) RASH Medication List - Last Reconciled 11/19/24 by Ame Nielsen MD cetirizine 10 mg PO DAILY cholecalciferol (vitamin D3) 50 mcg PO DAILY 90 days cyclobenzaprine 10 mg PO BEDTIME PRN 5 days fluticasone propionate 50 mcg/actuation (Flonase Allergy Relief) 1 spray intranasal DAILY omeprazole 20 mg PO DAILY quetiapine 50 mg PO TID 30 days Tobacco use date assessed: 11/19/24 Dental Screening Dental Screen Date: 11/19/24 Did you have a dental visit in the last 12 months?: No Did you have a dental problem in the last 6 months where you did not have access to dental care?: No Was dental information given to patient?: Patient has dentist HPI HPI Comments History of Present Illness Details The patient is a 63-year-old male presenting with the primary reason for visit being an annual physical examination and management of several chronic conditions. The patient has a history of essential hypertension, with current readings being borderline, and is not currently on any antihypertensive medication. He also reports an allergy to penicillin, resulting in a rash when exposed. He manages his seasonal allergic rhinitis with cetirizine and takes omeprazole for gastroesophageal reflux disease, which is controlled. He uses Flexeril occasionally for muscle spasms. For his vitamin D deficiency, he takes vitamin D supplements. The patient has been managing his depression with quetiapine but does not currently follow up with a psychiatrist. He has not seen a psychiatrist in some time. The patient underwent hand surgery on his left hand and a colonoscopy 2015 for colon cancer screening, where two polyps were found and removed and needed another one 5 years later which was not done and will be refer now. There is a new diagnosis of type 2 diabetes mellitus, confirmed with an A1c of 6.5%. I will start him on metformin and refer him to Ophthalmology for his diabetic eye exam. He is aware he needs to check his fasting blood glucose daily. The patient also has elevated cholesterol levels, with a total cholesterol of 213 mg/dL and LDL of 151 mg/dL and I will start him on statins. His LDL goal should be less than 70. - Received influenza vaccination today. - Colonoscopy last performed in 2015; next colonoscopy was due in 2020 but was not completed. Referral for a new colonoscopy is needed. - Screenings: Fasting glucose levels indicate some elevation, previously at 129 mg/dL and more recently at 135 mg/dL. - Recent A1c confirmed at 6.5%, implying diagnosis of Type 2 Diabetes Mellitus. - Lipid panel showed elevated cholesterol (Total Cholesterol: 213 mg/dL; LDL: 151 mg/dL). - Vitamin D levels are currently normal. - Father had colon cancer, increasing the patient's need for regular screenings. [facility] Medical History Dysuria Eye discomfort Conjunctivitis, right eye Skin lesion Transaminitis Surgical History History of hand surgery Family History Father Colon cancer Mother Diabetes Mental health disorder Social History Housing: House Alcohol intake: never Patient Tobacco Use Status: Never used Tobacco e-Cigarette/Vaping Use: Never Used Second Hand Smoke Exposure: No service: No Current occupational status: unemployed Cognitive needs: No Hearing needs: No Vision needs: No Questionnaire PHQ-9 Over the last 2 weeks, how often have you been bothered by any of the following problems? 1. Little interest or pleasure in doing things: not at all 2. Feeling down, depressed, or hopeless: several days 3. Trouble falling or staying asleep, or sleeping too much: not at all 4. Feeling tired or having little energy: several days 5. Poor appetite or overeating: several days 6. Feeling bad about yourself - or that you are a failure or have let yourself or your family down: not at all 7. Trouble concentrating on things, such as reading the newspaper or watching television: not at all 8. Moving or speaking so slowly that other people could have noticed. Or the opposite - being so fidgety or restless that you have been moving around a lot more than usual: not at all 9. Thoughts that you would be better off or of hurting yourself in some way: not at all Total score: 3 Depression Screening Interpretation: Positive Depression Screening Follow-up: Existing condition, In treatment and Follow-up Visit Requested Depression Screening Done: Yes 54427 - PHQ-9 Billing: Yes Source: Developed by Drs. Constantino Resendez, Marah Zambrano, Kyle Astorga and colleagues, with an educational thu from [employer]. Thrive Questionnaire Date Thrive assessed: 11/19/24 I am a: Patient What is your living situation today?: I have a steady place to live Within the past 12 months, did the food you bought not last and you didn't have the money to get more?: Never true Within the past 12 months, did you worry whether your food would run out before you got money to buy more?: Never true Do you have trouble paying for medicines?: No Do you have trouble getting transportation to medical appointments?: No Do you have trouble paying your heating and electricity bill?: No Do you have trouble taking care of your child, family member or friend?: No Do you have trouble with day-to-day activities such as bathing, preparing meals, shopping, managing finances, etc.?: No Are you currently unemployed and looking for a job?: No Are you interested in more education?: No Please select the resources that you would like help with: None Currently or been in a relationship where the following occur: No concerns reported THRIVE Score: 0 AUDIT C Alcohol Use Questionnaire (AUDIT-C) 1. How often do you have a drink containing alcohol?: Never Total Score: 0 Score Reviewed/Action Taken: No DEZ-7 AMB Questionnaire DEZ-7 Date DEZ - 7 assessed: 11/19/24 Feeling nervous, anxious, or on edge: 1 = Several days Not being able to stop or control worryin = Not at all Worrying too much about different things: 0 = Not at all Trouble relaxin = Not at all Being so restless that it is hard to sit still: 0 = Not at all Becoming easily annoyed or irritable: 0 = Not at all Feeling afraid as if something awful might happen: 1 = Several days Total DEZ-7 score (0-4 normal; 5-9 mild; 10-14 moderate; 15-21 severe): 2 Source: Developed by Drs. Constantino Resendez, Marah Zambrano, Kyle Astorga and colleagues, with an educational thu from [employer]. DEZ-7 Assessment Billing DEZ-7 Assessment Tool: DEZ-7 Assessment 58420 Review of Systems Const All systems reviewed & are unremarkable except as noted in HPI and below Card Denies chest pain at rest, Denies chest pain with activity, Denies edema, Denies irregular heart rhythm, Denies claudication, Denies dyspnea, Denies dyspnea on exertion, Denies orthopnea, Denies paroxysmal nocturnal dyspnea and Denies slow heart rate Resp Denies cough, Denies dyspnea and Denies dyspnea on exertion GI Denies abdominal pain, Denies change in bowel habits, Denies excessive flatus, Denies nausea and Denies vomiting Denies urinary hesitancy, Denies urinary incontinence and Denies urinary urgency Musc Denies abnormal gait, Denies atrophy, Denies deformity and Denies limited range of motion Skin/Breast Denies bleeding lesions, Denies changing lesions and Denies rash Neuro Denies abnormal gait, Denies behavioral changes and Denies lack of coordination Psych Denies behavioral changes Physical exam (Primary Care) Vital Signs: Last Vital Signs BP 140/78 H 11/19/24 11:13 BMI result Body Mass Index 30.2 BMI Assessment/Plan discussion: High BMI High, discussed plan: lifestyle, weight reduction, dietary and physical activity Tobacco/Smoking Status: Tobacco use Status Tobacco use date assessed 11/19/24 11/19/24 11:19 Patient Tobacco Use Status Never used Tobacco 11/19/24 11:19 e-Cigarette/Vaping Use Never Used 11/19/24 11:19 PHQ-9: PHQ-9 Score PHQ-9: Total score 3 11/19/24 12:14 Depression Screening Interpretation: Positive Depression Screening Follow-up: Existing condition, In treatment and Follow-up Visit Requested Thrive Assessment: Date of Thrive Assessment Date Thrive assessed 11/19/24 11/19/24 11:19 Currently or been in a relationship where the following occur: No concerns reported HENMT Head: Yes normal to inspection, Yes normocephalic and Yes atraumatic Ears: external ears normal Eyes General: appearance normal, both eyes and all related structures Eyelids: Yes eyelids normal Conjunctivae: conjunctivae normal Neck Neck: Yes normal visual inspection and Yes supple Resp Effort & Inspection: normal respiratory effort Auscultation: clear to auscultation bilaterally Cardio Jugular venous distension: no JVD Rate: regular rate Rhythm: regular rhythm Heart sounds: S1 normal heart sound present and S2 normal heart sound present GI Inspection: Yes normal to inspection Palpation (GI): Soft to palpation and nontender Auscultation: normal bowel sounds Skin General skin exam: no rashes or lesions noted Neuro General: no focal motor deficits Extrem General: Yes full ROM Psych Appearance: grossly normal Office Procedures Flu Questionnaire Does the patient have a severe egg allergy?: No Does the patient have severe life threatening allergies?: No Does the patient have a fever or illness today?: No Has the patient ever had Guillain-Nesmith Syndrome?: No Has the patient ever had any past reaction to a flu shot?: No Results AMB Hemoglobin A1c AMB Hemoglobin A1c 6.5 % Last Edit by VAHE Kong on 11/19/24 12:14 Immunizations Fluarix Triv 6263-1710 (PF) 45 mcg (15 mcg x 3)/0.5 mL IM syringe Performing Provider: Ame Nielsen MD [facility] [place] Administered by: VAHE Kong on 11/19/24 11:28 Dose Route Admin Location Dispensed Lot Number Expiration Date NDC Social Work Associate 0.5 mL IM Right Deltoid 0.5 mL [id number] 05/31/25 [id number] [employer] VIS Given Date VIS Provided VIS Publication Date 11/19/24 Single Vaccine 21 Eligibility Eligibility Date Funding Source Not [facility] Eligible 11/19/24 Private Results Reviewed Results Reviewed: Laboratory Last Values Hgb A1c (Clinic) 6.5 % (4.0-6.0) H 11/19/24 11:29 Coding Level of Care Code Est Pt Level 4 (50750) Est Pt Prev Care 40-64y(38061) Diagnoses Adult general medical exam Z00.00 Essential hypertension I10 Hyperlipidemia LDL goal <70 E78.5 Diabetes mellitus E11.9 Mild major depression F32.0 Additional Codes DEZ-7 Assessment Billing - DEZ-7 Assessment Tool: DEZ-7 Assessment 05594 ([id number]) PHQ-9 - 09404 - PHQ-9 Billing: Yes ([id number]) Time Spent (min) 35 Assessment & Plan Assessment & Plan (1) Adult general medical exam: Code(s): Z00.00 - Encounter for general adult medical examination without abnormal findings Category: Medical (2) Essential hypertension: Code(s): I10 - Essential (primary) hypertension Category: Medical (3) Hyperlipidemia LDL goal <70: Code(s): E78.5 - Hyperlipidemia, unspecified Category: Medical (4) Diabetes mellitus: Code(s): E11.9 - Type 2 diabetes mellitus without complications Category: Medical (5) Mild major depression: Code(s): F32.0 - Major depressive disorder, single episode, mild Category: Medical Plan - Begin diabetes management with medication twice daily; monitor blood glucose levels fasting each morning. - Referral for an eye examination due to diabetes diagnosis. - Initiate low-dose antihypertensive medication to manage elevated blood pressure readings. - Start cholesterol-lowering medication given the elevated LDL levels. - Will schedule fasting labs to reassess lipid profile and blood glucose levels. Patient was informed and verbally consented to the use of an ambient scribe for clinic note documentation during this visit. During the visit, I discussed with the patient the implications of his elevated A1c, resulting in a formal diagnosis of type 2 diabetes mellitus. We covered the management strategies, including starting medication to manage the blood sugar levels and dietary changes. I explained the necessity of monitoring his blood glucose levels every morning while fasting. We also discussed starting a low-dose blood pressure medication and a cholesterol-lowering agent to address his elevated cholesterol and borderline hypertension. I emphasized the importance of scheduling a colonoscopy due to his previous polyps and family history of colon cancer. I recommended an annual eye examination, crucial for monitoring potential diabetes complications. Additionally, I advised on the possible side effects of his new medications, such as gastrointestinal discomfort, and the significance of giving them time initially. Orders: Orders Influenza [id number] Immunization Today Z23 - Encounter for immunization AMB Hemoglobin A1c Today R73.02 - Impaired glucose tolerance (oral) Microalbumin, Random (w Creat) Today R80.9 - Proteinuria, unspecified Complete Blood Count Auto Diff Today D64.9 - Anemia, unspecified Vitamin B12 and Folate Today E53.8 - Deficiency of other specified B group vitamins Comprehensive [place]. Panel Fast Today E11.9 - Type 2 diabetes mellitus without complications Lipid Panel Today E78.5 - Hyperlipidemia, unspecified IRON PROFILE Today D64.9 - Anemia, unspecified Vitamin D 25-OH Total Today E55.9 - Vitamin D deficiency, unspecified Referrals Ophthalmology Referral E11.9 - Type 2 diabetes mellitus without complications Medications: New lancets (FreeStyle Lancets) Use 1 lancet once a day 100 ea 3RF E11.9 - Type 2 diabetes mellitus without complications atorvastatin 10 mg PO BEDTIME 90 days 90 tabs 1RF E78.5 - Hyperlipidemia, unspecified lisinopril 2.5 mg PO DAILY 90 days 90 tabs 1RF I10 - Essential (primary) hypertension metformin 500 mg PO BID 90 days 180 tabs 1RF E11.9 - Type 2 diabetes mellitus without complications blood-glucose meter (FreeStyle Lite Meter kit) As directed 1 ea 0RF E11.9 - Type 2 diabetes mellitus without complications blood sugar diagnostic (FreeStyle Lite Strips) Use 1 test strip once a day 100 ea 3RF E11.9 - Type 2 diabetes mellitus without complications Refilled fluticasone propionate 50 mcg/actuation (Flonase Allergy Relief) administer into each nostril 1 spray intranasal DAILY 100 mL 0RF R09.81 - Nasal congestion omeprazole 20 mg PO DAILY 30 caps 1RF K21.9 - Gastro-esophageal reflux disease without esophagitis cyclobenzaprine Take once a day at bedtime as needed for muscle pain/spasms for 5 days. 10 mg PO BEDTIME 5 days PRN 5 tabs 0RF muscle spasm M54.50 - Low back pain, unspecified, S39.012A - Strain of muscle, fascia and tendon of lower back, initial encounter cholecalciferol (vitamin D3) 50 mcg PO DAILY 90 days 90 caps 1RF Patient Instructions: - Start new diabetes medication as directed, twice daily. - Monitor fasting blood glucose every morning. - Schedule an eye exam annually. - Continue current allergy and stomach acid medications. - Go for fasting blood work tomorrow and follow dietary recommendations. - Plan for follow-up in 3 weeks to check blood pressure and review lab results. - Schedule and attend referred colonoscopy for screening. - Contact the doctor if experiencing any significant side effects from new medications. - Avoid intake of penicillin due to allergy.
[2024-11-19 11:13] VITALS: BP 140/78; BMI 30.2
== END 2024-11-19 11:47 | disposition home or self-care (01) ==
PROVIDERS: PCP Internal Medicine; Visit Provider Internal Medicine
DX: Z00.00 Encounter for general adult medical examination without abnormal findings (principal); E11.69 Type 2 diabetes mellitus with other specified complication; F32.0 Major depressive disorder, single episode, mild; I10 Essential (primary) hypertension; E78.5 Hyperlipidemia, unspecified; Z23 Encounter for immunization; R73.02 Impaired glucose tolerance (oral)

== ENCOUNTER → 2024-11-19 11:02 | Outpatient (BNVA) | payer OTHER, SELFPAY | PROVIDERS: PCP Internal Medicine; Visit Provider Internal Medicine | DX: Z00.00 Encounter for general adult medical examination without abnormal findings (principal); I10 Essential (primary) hypertension; E11.9 Type 2 diabetes mellitus without complications; E78.5 Hyperlipidemia, unspecified; F32.0 Major depressive disorder, single episode, mild; R80.9 Proteinuria, unspecified; E53.8 Deficiency of other specified B group vitamins; D64.9 Anemia, unspecified; R09.81 Nasal congestion; K21.9 Gastro-esophageal reflux disease without esophagitis; M54.50 Low back pain, unspecified; S39.012A Strain of muscle, fascia and tendon of lower back, initial encounter; X58.XXXA Exposure to other specified factors, initial encounter; Y93.9 Activity, unspecified; Y92.9 Unspecified place or not applicable; Y99.9 Unspecified external cause status; Z23 Encounter for immunization | CPT/HCPCS: 83036; 90471; 90656; 96127; 99212; 99396 ==

== ENCOUNTER 2024-11-20 10:12 | Outpatient (REF) | payer OTHER, SELFPAY ==
[2024-11-20 10:26] LABS: MANUAL DIFF FLAG NO
[2024-11-20 11:07] LABS: Basophils Percent Auto 0.5 % (0-2); Eosinophils Absolute Auto 0.2 X10*3/uL (0.0-0.4); Eosinophils Percent Auto 2.5 % (0-4); Hematocrit 43.3 % (42.0-52.0); Imm Gran Abs Auto 0.03 X10*3/uL (0.00-0.03); Imm Gran Pct Auto 0.5 % (0.0-0.4); Lymphocytes Absolute Auto 1.7 X10*3/uL (1.2-4.9); Lymphocytes Percent Auto 28.8 % (20-40); Mean Corpuscular HGB Conc 34.6 g/dl (31.0-36.0); Mean Corpuscular Hemoglobin 30.9 pg (27.0-33.0); Mean Corpuscular Volume 89.1 fL (80.0-98.0); Mean Platelet Volume 9.6 fL (9.4-12.4); Monocytes Absolute Auto 0.5 X10*3/uL (0.1-1.2); Monocytes Percent Auto 7.5 % (2-11); Neutrophils Absolute Auto 3.6 x10*3/uL (2.0-8.3); Neutrophils Percent Auto 60.2 % (45-73); Platelet Count 183 X10*3/uL (160-400); Red Blood Count 4.86 X10*6/uL (4.60-5.80); Red Cell Distribution Width 12.4 % (11.0-16.0)
[2024-11-20 11:51] LABS: Alanine Aminotransferase 48 U/L (0-40); Albumin Level 4.2 g/dL (3.5-5.0); Alkaline Phosphatase 93 U/L (39-117); Anion Gap 11 (12-20); Aspartate Amino Transferase 39 U/L (5-37); Bilirubin Total 0.8 mg/dL (0.0-1.0); Blood Urea Nitrogen 13 mg/dL (9-16); Calcium 9.1 mg/dL (8.4-10.2); Carbon Dioxide 26 mmol/L (22-29); Chloride 106 mmol/L (96-108); Cholesterol 194 mg/dL (<200); Estimated Glomerular Filt Rate > 60; Glucose Fasting 120 mg/dL (60-99); HDL Cholesterol 36 mg/dL (>40); Iron 103 mcg/dL (45-160); LDL Cholesterol Calculated 138 mg/dL (<100); Percent Iron Saturation 36 % (15-50); Potassium 4.4 mmol/L (3.3-5.1); Sodium 139 mmol/L (135-145); Total Iron Binding Capacity 284 mcg/dL (228-428); Total Protein 7.6 g/dL (6.5-8.0); Triglycerides 104 mg/dL (<150); Unsaturated Iron Binding 181 ug/dL
[2024-11-20 12:07] LABS: Vitamin D 25-OH Total 22.5 ng/mL (>30)
[2024-11-20 12:09] LABS: Folate 13.2 ng/mL (> or = 4.0); Vitamin B12 458 pg/mL (200-900)
[2024-11-20 13:15] LABS: Creatinine Urine 129.85 mg/dL; Microalbum/Creatinine Ratio Ur 3.8 ug/mg cr (<30)
== END 2024-11-20 10:13 | disposition home or self-care (01) ==
LOC: HO.LAB 10:12
PROVIDERS: PCP Internal Medicine; Visit Provider Internal Medicine
DX: D64.9 Anemia, unspecified (principal); E53.8 Deficiency of other specified B group vitamins; E55.9 Vitamin D deficiency, unspecified; R80.9 Proteinuria, unspecified; E11.9 Type 2 diabetes mellitus without complications; E78.5 Hyperlipidemia, unspecified
CPT/HCPCS: 36415; 80053; 80061; 82043; 82306; 82570; 82607; 82746; 83540; 85025

== ENCOUNTER 2025-01-15 12:15 | Outpatient (REF) | payer OTHER, SELFPAY ==
--- NOTE | ~2025-01-15 | XR_ITS ---
EXAMINATION: XR SHOULDER, RIGHT CLINICAL INFORMATION: M25.511 - Pain in right shoulder COMPARISON: None available. TECHNIQUE: AP external rotation, Grashey, scapular Y, and axillary views of the right shoulder. FINDINGS: Normal bone mineralization. No fracture, dislocation, or suspicious bone lesion. Normal alignment. The glenohumeral joint demonstrates mild degenerative arthrosis. The AC joint demonstrates mild degenerative arthrosis with mild undersurface spurring. There is a neutral lateral acromion. No undersurface spurring. The subacromial space is preserved. Remainder of the soft tissue and bony structures appear normal. XR/XR shoulder RT min 2V IMPRESSION: 1. No acute findings right shoulder. 2. 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 Electronically signed by: Taiwo Kasper MD 01/15/2025 01:57 PM NAVDEEP MENDOZA
--- OUTSIDE RECORDS SUMMARY | 2025-01-15 13:46 | XMS_ITS | Clinical Summary ---
Author Organization [facility] it Address [address] [place] [address] Care Team Providers Care Lead Die Molder Name Role Phone Unavailable Primary Care Provider [...]
== END 2025-01-15 12:16 | disposition home or self-care (01) ==
LOC: HO.HMGCX 12:15
PROVIDERS: PCP Internal Medicine; Visit Provider Nurse Practitioner Family
DX: M25.511 Pain in right shoulder (principal)
CPT/HCPCS: 73030; 99212

== ENCOUNTER 2025-01-15 12:15 | Outpatient (AMB) | payer OTHER, SELFPAY ==
--- OUTSIDE RECORDS SUMMARY | 2025-01-15 12:44 | XMS_ITS | Clinical Summary ---
Author Organization [facility] it Address [address] [place] [address] Care Team Providers Care Sifter Operator Name Role Phone Unavailable Primary Care Provider Unavailabl e Social History Tobacco Use Types Packs/Day Years Used Date Smoking Tobacco: Never Assessed Sex and Gender Information Value Date Recorded Sex Assigned at Not on file Legal Sex Male 4:29 AM EST Gender Identity Not on file Sexual Orientation Not on file Plan of Treatment Health Maintenance Due Date Last Done Comments DTaP,Tdap,and Td Vaccines (1 - Tdap) 1981 Zoster Vaccines (1 of 2) 2012 COVID-19 Vaccine ( - 2023-2 5 season) 2024 Influenza Vaccine (#1) 2024 RSV Immunization Patients 60 + Years Old (1 - 1-dose 75+ series) 2037 HIB Vaccines Aged Out No longer eligi ble based on patient's age to complete this topic HPV Vaccines Aged Out No longer eligi ble based on patient's age to complete this topic Hepatitis A Vaccines Aged Out No long er eligible based on patient's age to complete this topic Hepatitis B Vaccines Aged Out No long er eligible based on patient's age to complete this topic IPV Vaccines Aged Out No longer eligi ble based on patient's age to complete this topic MMR Vaccines Aged Out No longer eligi ble based on patient's age to complete this topic Meningococcal ACWY Vaccine Aged Out N o longer eligible based on patient's age to complete this topic Pneumococcal Vaccine: Pediat rics (0 to 5 Years) and At-Risk Patients (6 to 64 Years) Aged Out No longer eligible b ased on patient's age to complete this topic RSV Immunization Patients Un roxanne 20 months Aged Out No longer eligible b ased on patient's age to complete this topic Varicella Vaccines Aged Out No longer eligible based on patient's age to complete this topic
[2025-01-15 13:16] VITALS: BP 120/80; PULSE 58; O2SAT 98
--- NOTE | 2025-01-15 13:16 | MHC.OFFWIV ---
Intake Vital Signs 01/15/25 13:16 Weight 188 lb BP 120/80 Blood Pressure Location Rt brachial Position Sitting Pulse 58 Pulse Source Pulse Oximeter Pulse Oximetry (%) 98 Oxygen Delivery Method Room Air Intake Visit Reasons: EP-rt shoulder pain Intake Note: Patient here for right shoulder pain that has been present for about 3 weeks. Patient Tobacco Use Status: Never used Tobacco Allergies Penicillins [PENICILLINS] Allergy (Intermediate, Verified 01/15/25 13:17) RASH Do you need a note to return to daycare/school/sports/work: No HPI EP-rt shoulder pain HPI Details This is a 64-year-old male patient presents to the walk-in clinic today with report of right shoulder pain for the last 3 months. He states that this started when he was helping a friend move and lifted a heavy item. He did not feel a pop or click, however did develop right shoulder pain that radiates to his right trapezius area and down his right deltoid. He denies any neck pain or radiation of pain down arm. Denies any arm weakness. Reports this is most troublesome at night, when pain is increased and sleeping becomes difficult. [facility] Medical History Dysuria Eye discomfort Conjunctivitis, right eye Skin lesion Transaminitis Surgical History History of hand surgery Family History Father Colon cancer Mother Diabetes Mental health disorder Social History Housing: House Alcohol intake: never Patient Tobacco Use Status: Never used Tobacco e-Cigarette/Vaping Use: Never Used Second Hand Smoke Exposure: No service: No Current occupational status: unemployed Cognitive needs: No Hearing needs: No Vision needs: No Review of Systems Const All systems reviewed & are unremarkable except as noted in HPI and below Physical Exam Vital Signs: Last Vital Signs Pulse 58 01/15/25 13:16 BP 120/80 01/15/25 13:16 Pulse Ox 98 01/15/25 13:16 Oxygen Delivery Method Room Air 01/15/25 13:16 Const General: cooperative, healthy appearing, comfortable and no acute distress Limitations: no limitations HEENT Head: Yes normal to inspection Ears: hearing grossly normal bilaterally Neck Neck: Yes full ROM and Yes no lymphadenopathy Resp Effort & Inspection: normal respiratory effort Auscultation: clear to auscultation bilaterally Cardio Rate: regular rate Rhythm: regular rhythm Skin General skin exam: no rashes or lesions noted Neuro Motor exam (neuro): 5/5 motor strength present throughout and Normal motor muscle tone present throughout Extrem Right upper extremity: shoulder/upper arm Details: normal to inspection, tenderness (mild AC joint and deltoid tenderness, mild right trap ttp) and normal ROM Psych Appearance: grossly normal Mental Status: mental status grossly normal Speech and movement: Normal speech and movement present Assessment & Plan Assessment & Plan (1) Right shoulder pain: Code(s): M25.511 - Pain in right shoulder Qualifiers: Chronicity: acute Qualified Code(s): M25.511 - Pain in right shoulder Plan: Patient has a 3 month history of right shoulder pain. He has some AC tenderness, as well as some tenderness over proximal deltoid and right trapezius. He has excellent range of motion. I will get an x-ray today and notify him of results once these are available. I am going to prescribe him a short course of muscle relaxers and anti-inflammatory medication. We reviewed indications, use, possible side effects of these medications. Also reviewed gentle massage, stretching, and heat application. We discussed that if he does not improve with conservative measures, I highly recommend a course of physical therapy. He states he will discuss this with his PCP Dr. Lin as needed. All questions were answered patient verbalizes understanding and agrees to plan. Senior Manager [employer] services used #[id number] Orders: Orders XR shoulder RT min 2V Today M25.511 - Pain in right shoulder Medications: New meloxicam 15 mg PO DAILY 7 days 7 tabs 0RF M25.511 - Pain in right shoulder Refilled cyclobenzaprine Take once a day at bedtime as needed for muscle pain/spasms for 5 days. 10 mg PO BEDTIME 5 days PRN 5 tabs 0RF muscle spasm M54.50 - Low back pain, unspecified, S39.012A - Strain of muscle, fascia and tendon of lower back, initial encounter Coding Level of Care Code Est Pt Level 4 (37580) Diagnoses Acute pain of right shoulder M25.511 Chronicity: acute
== END 2025-01-15 13:56 | disposition home or self-care (01) ==
PROVIDERS: PCP Internal Medicine; Visit Provider Nurse Practitioner Family
DX: M25.511 Pain in right shoulder (principal)

== ENCOUNTER → 2025-01-15 13:45 | Outpatient (BNV) | payer OTHER, SELFPAY | PROVIDERS: PCP Internal Medicine; Visit Provider Radiology Diagnostic Radiology | DX: M25.511 Pain in right shoulder (principal) | CPT/HCPCS: 73030 ==

== ENCOUNTER 2025-01-28 09:19 | Outpatient (AMB) | payer OTHER, SELFPAY ==
--- OUTSIDE RECORDS SUMMARY | 2025-01-28 10:10 | XMS_ITS | Clinical Summary ---
Author Organization [facility] it Address [address] [place] [address] Care Team Providers Care Drapery Hand Name Role Phone Unavailable Primary Care Provider [...] DTaP,Tdap,and Td Vaccines (1 - Tdap) 1981 Pneumococcal Vaccine: 50+ Ye ars (1 of 1 - PCV) 2012 Zoster Vaccines (1 of 2) 2012 COVID-19 Vaccine (1 - 2023-2 5 season) 2024 Influenza Vaccine [...] patient's age to complete this topic Meningococcal B Vacine Aged Out No lo nger eligible based on patient's age to complete [...]
--- NOTE | 2025-01-28 10:32 | AM.OFFWIN_ITS ---
Intake Vital Signs 01/28/25 10:50 Weight 167 lb BP 122/88 Blood Pressure Location Lt brachial Position Sitting Pulse 58 Pulse Oximetry (%) 98 Oxygen Delivery Method Room Air Intake Visit Reasons: EP-rt shoulder/arm pain, chest lump Intake Note: Patient here for right shoulder/arm pain that has been present for 3-4 months. Patient Tobacco Use Status: Never used Tobacco Allergies Penicillins [PENICILLINS] Allergy (Intermediate, Verified 01/28/25 10:51) RASH Do you need a note to return to daycare/school/sports/work: No HPI HPI Comments History of Present Illness Details History of Present Illness - The patient is a 64-year-old male pres enting with right shoulder pain and a blister-like lesion near the rectal area. - The shoulder pain began four months ag o after lifting a heavy item. - Pain occurs primarily at night, distur leah sleep, but is less prominent during the day. - Meloxicam and muscle relaxers, prescri bed previously for this pain, was ineffective. - X-ray results on 01/15 indicated mild d egenerative arthritis in the affected shoulder. - The blister-like lesion has developed near the rectal area and has been present for a week, painful. Physical Exam General: Cooperative, healthy appearing, comfortable, no acute distress and well developed Orientation: Patient oriented x3 Limitations: No limitations Head: Normal to inspection Ears: Hearing grossly normal bilaterally Nose: Normal external nose present Face and sinus: Normal facial exam Eyes: Appearance normal, both eyes and all related structures Neck: Normal visual inspection and Yes full ROM Respiratory: Normal respiratory effort and able to speak in complete sentences. Skin: No rashes or lesions noted Neuro: Patient oriented x3 Extremities: Normal to inspection, Full ROM some pain in inversion. negative empty can, TTP along right trapezius and proximal bicept [place]e video hog room supervisor was used for this visit [facility] Medical History Dysuria Eye discomfort Conjunctivitis, right eye Skin lesion Transaminitis Surgical History History of hand surgery Family History Father Colon cancer Mother Diabetes Mental health disorder Social History Housing: House Alcohol intake: never Patient Tobacco Use Status: Never used Tobacco e-Cigarette/Vaping Use: Never Used Second Hand Smoke Exposure: No service: No Current occupational status: unemployed Cognitive needs: No Hearing needs: No Vision needs: No Review of Systems Const All systems reviewed & are unremarkable except as noted in HPI and below Physical Exam Vital Signs: Last Vital Signs Pulse 58 01/28/25 10:50 BP 122/88 01/28/25 10:50 Pulse Ox 98 01/28/25 10:50 Oxygen Delivery Method Room Air 01/28/25 10:50 Assessment & Plan Assessment & Plan (1) Right shoulder pain: Code(s): M25.511 - Pain in right shoulder Qualifiers: Chronicity: chronic Qualified Code(s): M25.511 - Pain in right s houlder; G89.29 - Other chronic pain Plan: An orthopedic referral is advised to further investigate the patient?s right shoulder pain, which may benefit from advanced imaging to assess potential soft tissue involvement. The previous medication, meloxicam, did not provide relief, hence a different anti-inflammatory treatment will be trialed. Patient was informed and verbally consented to the use of an ambient scribe for clinic note documentation during this visit. (2) Arthritis of shoulder region, right: Code(s): M19.011 - Primary osteoarthritis, right shoulder Plan: as above (3) Hemorrhoids: Code(s): K64.9 - Unspecified hemorrhoids Qualifiers: Hemorrhoid type: unspecified Qualified Code(s): K64.9 - Unspecified hemorrhoids Plan: For the external rectal lesion, the patient received Up To Date hand out, in Surinamese, with information regarding hemorrhoids and treatment options, despite the current assumption that the lesion differs from this diagnosis, to ensure proper interim management. Messaged PCP office for follow up if persistent. Orders: Referrals Orthopedics Referral M19.011 - Primary osteoarthritis, right shoulder, M25.511 - Pain in right shoulder Medications: New diclofenac sodium 50 mg PO Q12H PRN 20 tabs 0RF pain Discontinued cyclobenzaprine Take once a day at bedtime as needed for muscle pain/spasms for 5 days. Discontinued Reason: Doctor's Order 10 mg PO BEDTIME 5 days PRN 5 tabs 0RF muscle spasm M54.50 - Low back pain, unspecified, S39.012A - Strain of muscle, fascia and tendon of lower back, initial encounter meloxicam Discontinued Reason: Doctor's Order 15 mg PO DAILY 7 days 7 tabs 0RF M25.511 - Pain in right shoulder Coding Level of Care Code Est Pt Level 4 (83283) Diagnoses Chronic right shoulder pain M25.511; G89.29 Chronicity: chronic Arthritis of shoulder region, right M19.011 Hemorrhoids, unspecified hemorrhoid type K64.9 Hemorrhoid type: unspecified
[2025-01-28 10:50] VITALS: BP 122/88; PULSE 58; O2SAT 98
== END 2025-01-28 11:34 | disposition home or self-care (01) ==
PROVIDERS: PCP Internal Medicine; Visit Provider Physician Assistant
DX: M25.511 Pain in right shoulder (principal); G89.29 Other chronic pain; M19.011 Primary osteoarthritis, right shoulder; K64.9 Unspecified hemorrhoids

== ENCOUNTER → 2025-01-28 09:19 | Outpatient (BNVA) | payer OTHER, SELFPAY | PROVIDERS: PCP Internal Medicine | DX: M25.511 Pain in right shoulder (principal); G89.29 Other chronic pain; M19.011 Primary osteoarthritis, right shoulder; K64.9 Unspecified hemorrhoids | CPT/HCPCS: 99212 ==

== ENCOUNTER 2025-02-05 14:41 | Outpatient (AMB) | payer OTHER, SELFPAY ==
--- NOTE | 2025-02-05 14:54 | A.OFFPC_ITS ---
Vital Signs 02/05/25 14:58 Height 5 ft 6 in Weight 166 lb 8 oz BMI 26.9 BP 110/68 Blood Pressure Location Lt brachial Position Sitting Pulse 71 Pulse Source Pulse Oximeter Temp 97.5 F Temp Source Temporal Artery Scan Pulse Oximetry (%) 97 Oxygen Delivery Method Room Air Intake Visit Reasons: hemmoroids, Intake Note: Patient is here to follow up on Hemmoroids. 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 Handler: Not Required per policy Accompanied by: Self / Same As Patient Allergies Penicillins [PENICILLINS] Allergy (Intermediate, Verified 02/05/25 15:04) RASH Medication List - Last Reconciled 02/05/25 by Candie Doherty PA-C atorvastatin 10 mg PO BEDTIME 90 days blood sugar diagnostic (FreeStyle Lite Strips) Use 1 test strip once a day blood-glucose meter (FreeStyle Lite Meter kit) As directed cetirizine 10 mg PO DAILY cholecalciferol (vitamin D3) 50 mcg PO DAILY 90 days fluticasone propionate 50 mcg/actuation (Flonase Allergy Relief) 1 spray intranasal DAILY lancets (FreeStyle Lancets) Use 1 lancet once a day lisinopril 2.5 mg PO DAILY 90 days metformin 500 mg PO BID 90 days omeprazole 20 mg PO DAILY quetiapine 50 mg PO TID 30 days tramadol 50 mg PO BID PRN 5 days Tobacco use date assessed: 02/05/25 Dental Screening Dental Screen Date: 02/05/25 Did you have a dental visit in the last 12 months?: Yes Did you have a dental problem in the last 6 months where you did not have access to dental care?: No Was dental information given to patient?: Patient has dentist [facility] Medical History Left knee pain Dysuria Eye discomfort Conjunctivitis, right eye Skin lesion Transaminitis Surgical History History of hand surgery Family History Father Colon cancer Mother Diabetes Mental health disorder Social History Housing: House Alcohol intake: never Patient Tobacco Use Status: Never used Tobacco e-Cigarette/Vaping Use: Never Used Second Hand Smoke Exposure: No service: No Current occupational status: unemployed Cognitive needs: No Hearing needs: No Vision needs: No Questionnaire PHQ-9 Over the last 2 weeks, how often have you been bothered by any of the following problems? 1. Little interest or pleasure in doing things: not at all 2. Feeling down, depressed, or hopeless: not at all 3. Trouble falling or staying asleep, or sleeping too much: not at all 4. Feeling tired or having little energy: not at all 5. Poor appetite or overeating: not at all 6. Feeling bad about yourself - or that you are a failure or have let yourself or your family down: not at all 7. Trouble concentrating on things, such as reading the newspaper or watching television: not at all 8. Moving or speaking so slowly that other people could have noticed. Or the opposite - being so fidgety or restless that you have been moving around a lot more than usual: not at all 9. Thoughts that you would be better off or of hurting yourself in some way: not at all Total score: 0 Depression Screening Interpretation: Negative Depression Screening Done: Yes 53622 - PHQ-9 Billing: Yes Source: Developed by Drs. Constantino Resendez, Marah Zambrano, Kyle Astorga and colleagues, with an educational thu from [employer]. Thrive Questionnaire Date Thrive assessed: 02/05/25 I am a: Patient What is your living situation today?: I have a steady place to live Within the past 12 months, did the food you bought not last and you didn't have the money to get more?: Never true Within the past 12 months, did you worry whether your food would run out before you got money to buy more?: Never true Do you have trouble paying for medicines?: No Do you have trouble getting transportation to medical appointments?: No Do you have trouble paying your heating and electricity bill?: No Do you have trouble taking care of your child, family member or friend?: No Do you have trouble with day-to-day activities such as bathing, preparing meals, shopping, managing finances, etc.?: No Are you currently unemployed and looking for a job?: No Are you interested in more education?: No Please select the resources that you would like help with: None Currently or been in a relationship where the following occur: No concerns reported THRIVE Score: 0 AUDIT C Alcohol Use Questionnaire (AUDIT-C) 1. How often do you have a drink containing alcohol?: Never Total Score: 0 Score Reviewed/Action Taken: No DEZ-7 AMB Questionnaire DEZ-7 Date DEZ - 7 assessed: 02/05/25 Feeling nervous, anxious, or on edge: 0 = Not at all Not being able to stop or control worryin = Not at all Worrying too much about different things: 0 = Not at all Trouble relaxin = Not at all Being so restless that it is hard to sit still: 0 = Not at all Becoming easily annoyed or irritable: 0 = Not at all Feeling afraid as if something awful might happen: 0 = Not at all Total DEZ-7 score (0-4 normal; 5-9 mild; 10-14 moderate; 15-21 severe): 0 Source: Developed by Drs. Constantino Resendez, Marah Zambrano, Kyle Astorga and colleagues, with an educational thu from [employer]. DEZ-7 Assessment Billing DEZ-7 Assessment Tool: DEZ-7 Assessment 17159 Physical exam (Primary Care) Vital Signs: Last Vital Signs Temp 97.5 F 02/05/25 14:58 Pulse 71 02/05/25 14:58 BP 110/68 02/05/25 14:58 Pulse Ox 97 02/05/25 14:58 Oxygen Delivery Method Room Air 02/05/25 14:58 Care Plan Goal for BP management: <130/80 at Goal BMI result Body Mass Index 26.9 BMI Assessment/Plan discussion: High BMI High, discussed plan: lifestyle, weight reduction, dietary, physical activity and alcohol moderation Tobacco/Smoking Status: Tobacco use Status Tobacco use date assessed 02/05/25 02/05/25 15:02 Patient Tobacco Use Status Never used Tobacco 02/05/25 15:02 e-Cigarette/Vaping Use Never Used 02/05/25 15:02 PHQ-9: PHQ-9 Score PHQ-9: Total score 0 02/05/25 15:05 Depression Screening Interpretation: Negative Thrive Assessment: Date of Thrive Assessment Date Thrive assessed 02/05/25 02/05/25 15:02 Currently or been in a relationship where the following occur: No concerns reported Results AMB Hemoglobin A1c AMB Hemoglobin A1c 5.2 % Last Edit by VAHE Escobar on 02/05/25 15:25 Coding Level of Care Code Est Pt Level 4 (76443) Complex EM visit Add On G2211 Diagnoses Hemorrhoids, unspecified hemorrhoid type K64.9 Hemorrhoid type: unspecified Left knee pain M25.562 Mild major depression F32.0 Hyperlipidemia LDL goal <70 E78.5 Diabetes mellitus E11.9 Anxiety and depression F41.9; F32.A GERD (gastroesophageal reflux disease) K21.9 Nasal congestion R09.81 Arthritis of shoulder region, right M19.011 Essential hypertension I10 Additional Codes PHQ-9 - 43066 - PHQ-9 Billing: Yes ([id number]) DEZ-7 Assessment Billing - DEZ-7 Assessment Tool: DEZ-7 Assessment 68779 ([id number]) Assessment & Plan Assessment & Plan (1) Hemorrhoids: Code(s): K64.9 - Unspecified hemorrhoids Category: Medical Qualifiers: Hemorrhoid type: unspecified Qualified Code(s): K64.9 - Unspecified hemorrhoids Plan: External hemorrhoid. Not consistent with thrombosed or incarcerated hemorrhoid. Patient will referred to General surgery and given prescription for Anusol. Condition is chronic and stable continue to monitor. (2) Left knee pain: Code(s): M25.562 - Pain in left knee Category: Medical Plan: Patient with acute atraumatic left knee pain. On exam patient has full range of motion no obvious ligamentous or tendon injury. No obvious joint effusions. No lower extremity edema or calf tenderness. Patient most likely strain of left knee will order x-ray and referred to Orthopedic. Condition is stable will continue to monitor. (3) Mild major depression: Code(s): F32.0 - Major depressive disorder, single episode, mild Category: Medical Plan: Patient currently on quetiapine 50 mg t.i.d.. Condition is chronic and stable continue to monitor. (4) Hyperlipidemia LDL goal <70: Code(s): E78.5 - Hyperlipidemia, unspecified Category: Medical Plan: Patient currently on atorvastatin 10 mg at bedtime. Condition is chronic and stable continue to monitor. (5) Diabetes mellitus: Code(s): E11.9 - Type 2 diabetes mellitus without complications Category: Medical Plan: A1c level at 5.2 today. Patient reports his blood glucose level have been dropping to the 60s and 70s. I discussed this with Dr. Liz we decided that we will discontinue the patient off of his metformin starting today. He is instructed to continue take his glucose levels. If he starts to have elevated glucose levels he will call us and we will restart him on the metformin. Patient also lost about 20-30 lb he reports. He is also eating healthier. Patient will have a CBC done today if not anemic patient will continue to be off of metformin. He understands this plan. Condition is chronic and stable continue to monitor (6) Anxiety and depression: Code(s): F41.9 - Anxiety disorder, unspecified; F32.A - Depression, unspecified Category: Medical Plan: Patient currently on quetiapine 50 mg t.i.d.. Condition is chronic and stable continue to monitor. (7) GERD (gastroesophageal reflux disease): Code(s): K21.9 - Gastro-esophageal reflux disease without esophagitis Category: Medical Plan: Patient currently on omeprazole 20 mg daily. Condition is chronic and stable continue to monitor. (8) Nasal congestion: Code(s): R09.81 - Nasal congestion Category: Medical Plan: Patient went nasal spray. Condition is chronic and stable continue to monitor. (9) Arthritis of shoulder region, right: Code(s): M19.011 - Primary osteoarthritis, right shoulder Category: Medical Plan: Patient is seen in the urgent care and was noted to have an x-ray with right shoulder arthritis. Refer to orthopedic pending referral. Condition is chronic and stable continue to monitor (10) Essential hypertension: Code(s): I10 - Essential (primary) hypertension Category: Medical Plan: Goal <130/80. At goal today. Patient to continue lisinopril 2.5 mg daily. Condition is chronic and stable continue to monitor. Plan Plan Patient was informed and verbally consented to the use of an ambient scribe for clinic note documentation during this visit. 1. Hypertension Continue antihypertensives with indicated medication refills. 2. Right Shoulder Pain Managed with as-needed Tramadol, monitoring efficacy and refills status. 3. Hemopathy Discussed surgical intervention, requiring further review and possible future scheduling. 4. Depression Maintain antidepressants with ongoing refills per patient report. 5. Gastroesophageal Reflux Disease Gerd Stable, with no refills required, maintaining current regimen. 6. Diabetes Mellitus Adjust Metformin based on current blood glucose levels, specific instructions provided for adjustments. Blood work ordered at this time to assess the patient's CBC to ensure patient is not anemic and that is A1c level is actually 5.2 7. Atraumatic left knee pain Will order x-ray of left knee. Referral to orthopedic in place. Orders: Orders XR knee LT 4V Today M25.562 - Pain in left knee Vitamin D 25-OH Total Today Z00.00 - Encounter for general adult medical examination without abnormal findings PSA,Total (Free>4and<10) Today Z00.00 - Encounter for general adult medical examination without abnormal findings AMB Hemoglobin A1c Today E11.9 - Type 2 diabetes mellitus without complications Complete Blood Count Auto Diff Today Z00.00 - Encounter for general adult medical examination without abnormal findings Comprehensive [place]ri[place]. Panel Fast Today Z00.00 - Encounter for general adult medical examination without abnormal findings Magnesium Today Z00.00 - Encounter for general adult medical examination without abnormal findings Vitamin B1 Today Z00.00 - Encounter for general adult medical examination without abnormal findings Vitamin B12 and Folate Today Z00.00 - Encounter for general adult medical examination without abnormal findings Microalbumin, Random (w Creat) Today E11.9 - Type 2 diabetes mellitus without complications Liver Panel Today Z00.00 - Encounter for general adult medical examination without abnormal findings C Reactive Protein Today Z00.00 - Encounter for general adult medical examination without abnormal findings Referrals General Surgery Referral K64.9 - Unspecified hemorrhoids Orthopedics Referral G89.29 - Other chronic pain, M19.011 - Primary osteoarthritis, right shoulder, M25.511 - Pain in right shoulder, M25.562 - Pain in left knee Medications: New hydrocortisone 2.5% (Anusol-HC) 1 appl PA BID-QID PRN 30 grams 4RF pain Refilled fluticasone propionate 50 mcg/actuation (Flonase Allergy Relief) administer into each nostril 1 spray intranasal DAILY 100 mL 3RF R09.81 - Nasal congestion tramadol 50 mg PO BID 5 days PRN 14 tabs 0RF pain cholecalciferol (vitamin D3) 50 mcg PO DAILY 90 days 90 caps 1RF cetirizine 10 mg PO DAILY 90 tabs 0RF for allergies R09.81 - Nasal congestion omeprazole 20 mg PO DAILY 90 caps 1RF K21.9 - Gastro-esophageal reflux disease without esophagitis lisinopril 2.5 mg PO DAILY 90 days 90 tabs 1RF I10 - Essential (primary) hypertension atorvastatin 10 mg PO BEDTIME 90 days 90 tabs 1RF E78.5 - Hyperlipidemia, unspecified lancets (FreeStyle Lancets) Use 1 lancet once a day 100 ea 3RF E11.9 - Type 2 diabetes mellitus without complications quetiapine 50 mg PO TID 30 days 90 tabs 1RF Patient Instructions: Patient Instructions - Continue using Tramadol for shoulder pain as needed and monitor symptoms. - Monitor blood sugar levels daily and take Metformin only if levels rise above 200. - Refill prescriptions for hypertension and depression medications as needed. - x-ray of left knee placed - blood work ordered at this time to assess the patient's CBC to ensure patient is not anemic and that is A1c level is actually 5.2 - Maintain GERD management with current medications only if symptoms arise. - Follow up in 3 months for medication reevaluation or sooner if symptoms worsen. Scribe Plan - Not visible on output: History of Present Illness The patient is a 64-year-old male presenting with complaints of right shoulder pain, atraumatic left knee pain and hemorrhoids. He reports experiencing right shoulder pain for the past two years, managed with Tramadol, with some improvement noted. He was noted to have some rectal pain went to the urgent care and was noted to have hemorrhoids and referred here. Denies any pain, constipation or recent straining or black or bloody stools or any abdominal pain. He has a history of hypertension and depression, requiring medication management, and he expressed the need for prescription refills. Though he has been diagnosed with GERD, he indicated it is currently stable, currently on omeprazole 20 mg daily. Patient is a diabetic. Reports that he has been checking his glucose levels and they have been sometimes in the 60s to 70s and he will be having a little bit of dizziness or headache with this and then he will eat something after to increase his blood glucose level. He reports his blood glucose level is never over 140 or 150. He reports he has changed his diet significantly since he was told he was a diabetic and he has lost some weight since then as well. His diabetes mellitus was addressed with Metformin, which is now instructed to be discontinued due to A1c level 5.2. I discussed this with Dr. Liz who reported the patient should discontinue the metformin and will have a CBC done today to ensure the patient is not anemic and that his A1c level is actually 5.2. Patient understands this. Social History - The patient reported routine physical activities, like visiting the park recently. - Medication adherence indicated through discussion of prescriptions and refills needed. Review of Systems - Musculoskeletal: Reports right shoulder pain. - Endocrine: Denies hyperglycemia since adjusting Metformin usage. Physical Exam Appearance: Alert. Oriented X3. No acute distress. Head: Normal external exam. Normocephalic. Atraumatic. Eyes: Pupils are equal, round, and reactive to light. Extraocular movements intact. Conjunctiva and sclera normal. Eyelids normal. Ears: External auditory canal normal. Tympanic membranes normal. Throat: Pharynx normal. Uvula midline. Moist mucous membranes. Neck: Normal inspection. Neck supple. Full range of motion. No adenopathy. Thyroid Normal. No meningeal signs. No neck mass noted. Cardiovascular: Normal heart rate and rhythm. Heart sound normal. No murmurs noted. Pulses normal throughout. Respiratory: No respiratory distress. Painless inspiration. Breath sounds normal. No wheezes/rales/rhonchi noted. Chest nontender. No accessory muscle usage noted or decreased air movement noted. Abdomen: Soft and nontender. Bowel sounds normal in all 4 quadrants. No distention noted. No organomegaly noted. No visible injury noted. : External hemorrhoid to left side noted. Not consistent with thrombosed or incarcerated hemorrhoid. Back: No costovertebral angle tenderness. Full range of motion noted. Skin: Skin warm and dry. Normal skin color. Normal skin turgor. No rashes/lesions/lacerations noted. Extremities: No lower extremity edema. Patient mild tenderness palpation to left knee. No obvious joint effusion. No lower extremity edema or calf tenderness is noted. Patient has full range of motion. No obvious ligamentous or tendon injury is noted. Patient with tenderness palpation to the right shoulder with limited range of motion due to pain. No obvious ligamentous or tendon injury is noted. No joint effusion to right shoulder. No obvious infections to any of the joints. Patient moving all extremities. All other extremities exhibit normal range of motion nontender. Neuro: Oriented X 3. No motor deficit. No sensory deficit. Reflexes normal. Results - A1c level 5.2 today. Plan Patient was informed and verbally consented to the use of an ambient scribe for clinic note documentation during this visit. 1. Hypertension Continue antihypertensives with indicated medication refills. 2. Right Shoulder Pain Managed with as-needed Tramadol, monitoring efficacy and refills status. 3. Hemopathy Discussed surgical intervention, requiring further review and possible future scheduling. 4. Depression Maintain antidepressants with ongoing refills per patient report. 5. Gastroesophageal Reflux Disease Gerd Stable, with no refills required, maintaining current regimen. 6. Diabetes Mellitus Adjust Metformin based on current blood glucose levels, specific instructions provided for adjustments. Blood work ordered at this time to assess the patient's CBC to ensure patient is not anemic and that is A1c level is actually 5.2 7. Atraumatic left knee pain Will order x-ray of left knee. Referral to orthopedic in place. Discussion Notes I reviewed the patient?s current conditions and established management strategies aligning with maintaining control over hypertension, depression, and GERD, reinforcing the importance of regular medication adherence. We further discussed plans for shoulder pain management with Tramadol and assessed his response to medication. The possibility of surgical intervention for hemorrhoids was also reviewed. We clarified adjustments to diabetes management, recommending a discontinuation of Metformin with guidelines to take only as needed per specific blood glucose monitoring. Follow-up discussions will include reviewing blood sugar logs and evaluating the need for intervention based on glucose levels. Medication refills have been approved as directed. Patient Instructions - Continue using Tramadol for shoulder pain as needed and monitor symptoms. - Monitor blood sugar levels daily and take Metformin only if levels rise above 200. - Refill prescriptions for hypertension and depression medications as needed. - Maintain GERD management with current medications only if symptoms arise. - Follow up in 3 months for medication reevaluation or sooner if symptoms worsen.
[2025-02-05 14:58] VITALS: BP 110/68; PULSE 71; TEMP 36.4; O2SAT 97; BMI 26.9
--- OUTSIDE RECORDS SUMMARY | 2025-02-05 16:25 | XMS_ITS | Clinical Summary ---
Author Organization [facility] it Address [address] [place] [address] Care Team Providers Care Scow Captain Name Role Phone Unavailable Primary Care Provider [...]
== END 2025-02-05 15:43 | disposition home or self-care (01) ==
PROVIDERS: PCP Internal Medicine; Visit Provider Physician Assistant Medical
DX: E11.69 Type 2 diabetes mellitus with other specified complication (principal); F32.0 Major depressive disorder, single episode, mild; K64.9 Unspecified hemorrhoids; M25.562 Pain in left knee; E78.5 Hyperlipidemia, unspecified; F41.9 Anxiety disorder, unspecified; F32.A Depression, unspecified; K21.9 Gastro-esophageal reflux disease without esophagitis; R09.81 Nasal congestion; M19.011 Primary osteoarthritis, right shoulder; I10 Essential (primary) hypertension

== ENCOUNTER → 2025-02-05 14:41 | Outpatient (BNVA) | payer OTHER, SELFPAY | PROVIDERS: PCP Internal Medicine; Visit Provider Physician Assistant Medical | DX: K64.9 Unspecified hemorrhoids (principal); M25.562 Pain in left knee; F32.0 Major depressive disorder, single episode, mild; E78.5 Hyperlipidemia, unspecified; E11.9 Type 2 diabetes mellitus without complications; F41.9 Anxiety disorder, unspecified; F32.A Depression, unspecified; R09.81 Nasal congestion; M19.011 Primary osteoarthritis, right shoulder; I10 Essential (primary) hypertension | CPT/HCPCS: 83036; 96127; 99212 ==

== ENCOUNTER 2025-02-12 10:47 | Outpatient (REF) | payer OTHER, SELFPAY ==
--- NOTE | ~2025-02-12 | XR_ITS ---
CLINICAL HISTORY: M25.562 - Pain in left knee 4 view left knee Comparison: None Findings: Bones intact. No dislocations. Large inferior patellar osteophyte. No significant loss of joint space or erosions. No joint effusion. No radiopaque foreign body. IMPRESSION: 1. No acute findings. This document has been electronically signed by: Magdy Hamilton MD on 02/13/2025 08:51:12
[2025-02-12 11:02] LABS: MANUAL DIFF FLAG NO
[2025-02-12 11:44] LABS: Basophils Percent Auto 0.4 % (0-2); Eosinophils Absolute Auto 0.4 X10*3/uL (0.0-0.4); Eosinophils Percent Auto 6.8 % (0-4); Hematocrit 40.9 % (42.0-52.0); Imm Gran Abs Auto 0.01 X10*3/uL (0.00-0.03); Imm Gran Pct Auto 0.2 % (0.0-0.4); Lymphocytes Absolute Auto 1.6 X10*3/uL (1.2-4.9); Lymphocytes Percent Auto 30.1 % (20-40); Mean Corpuscular HGB Conc 34.2 g/dl (31.0-36.0); Mean Corpuscular Hemoglobin 30.6 pg (27.0-33.0); Mean Corpuscular Volume 89.3 fL (80.0-98.0); Mean Platelet Volume 9.6 fL (9.4-12.4); Monocytes Absolute Auto 0.3 X10*3/uL (0.1-1.2); Monocytes Percent Auto 6.6 % (2-11); Neutrophils Absolute Auto 2.9 x10*3/uL (2.0-8.3); Neutrophils Percent Auto 55.9 % (45-73); Platelet Count 178 X10*3/uL (160-400); Red Blood Count 4.58 X10*6/uL (4.60-5.80); Red Cell Distribution Width 12.4 % (11.0-16.0); White Blood Count 5.2 X10*3/uL (4.8-10.8)
[2025-02-12 12:29] LABS: Alanine Aminotransferase 44 U/L (0-40); Alkaline Phosphatase 104 U/L (39-117); Anion Gap 9 (12-20); Aspartate Amino Transferase 42 U/L (5-37); Bilirubin Direct 0.2 mg/dL (0.0-0.5); Bilirubin Total 0.4 mg/dL (0.0-1.0); Blood Urea Nitrogen 16 mg/dL (9-16); C Reactive Protein 0.32 mg/dL (< or = 0.50); Calcium 9.2 mg/dL (8.4-10.2); Carbon Dioxide 28 mmol/L (22-29); Chloride 110 mmol/L (96-108); Estimated Glomerular Filt Rate > 60; Glucose Fasting 109 mg/dL (60-99); Magnesium 2.1 mg/dL (1.6-2.6); Potassium 4.7 mmol/L (3.3-5.1); Sodium 142 mmol/L (135-145); Total Protein 7.5 g/dL (6.5-8.0)
[2025-02-12 12:47] LABS: Vitamin D 25-OH Total 28.6 ng/mL (>30)
[2025-02-12 12:49] LABS: Creatinine Urine 157.25 mg/dL; Microalbum/Creatinine Ratio Ur 3.8 ug/mg cr (<30)
[2025-02-12 12:59] LABS: PSA,Total (Free>4and<10) 2.56 ng/mL (0.00-4.00)
[2025-02-12 13:11] LABS: Folate 13.3 ng/mL (> or = 4.0); Vitamin B12 578 pg/mL (200-900)
[2025-02-22 01:09] LABS: Vitamin B1 9 nmol/L (8-30)
== END 2025-02-12 10:48 | disposition home or self-care (01) ==
LOC: HO.XRAY 10:47
PROVIDERS: PCP Internal Medicine; Visit Provider Physician Assistant Medical
DX: Z00.00 Encounter for general adult medical examination without abnormal findings (principal); E11.9 Type 2 diabetes mellitus without complications; M25.562 Pain in left knee
CPT/HCPCS: 36415; 73564; 80053; 80076; 82043; 82248; 82306; 82570; 82607; 82746; 83735; 84153; 84425; 85025; 86140

== ENCOUNTER → 2025-02-12 11:05 | Outpatient (BNV) | payer OTHER, SELFPAY | PROVIDERS: PCP Internal Medicine; Visit Provider Radiology Diagnostic Radiology | DX: M25.562 Pain in left knee (principal) | CPT/HCPCS: 73564 ==

== ENCOUNTER 2025-02-24 08:36 | Outpatient (AMB) | payer OTHER, SELFPAY ==
--- NOTE | 2025-02-24 08:47 | A.OFFVIS_ITS ---
Vital Signs 02/24/25 08:52 Height 5 ft 6 in Weight 166 lb 8 oz BMI 26.9 Intake Visit Reasons: Right shoulder pain and weakness Intake Note: Mr. Marcus is a 64-year-old kmjoz-xvzl-tchyggoy male who presents with complaints of progressively worsening right shoulder pain and weakness. The patient describes his pain as sharp in nature. Most of the pain is along the superior and lateral aspects of his shoulder. He did injure his right shoulder while lifting a heavy object approximately 1 year ago. He has failed the last 6 weeks of conservative treatment which has consisted of a home exercise program, physical therapy exercises, Tylenol and anti-inflammatory medicines as well as muscle relaxants. The patient states that he has difficulty lifting his right hand above shoulder height. At this point his right shoulder pain and weakness are interfering with his activities of daily living and his ability to sleep well through the night. Senior Geotechnical Engineer Required: Yes Senior Geotechnical Engineer Language: Sap Business Analyst Services: Senior Geotechnical Engineer Present Senior Geotechnical Engineer Name: HarryVAHE/TOMÁS Allergies Penicillins [PENICILLINS] Allergy (Intermediate, Verified 02/05/25 15:04) RASH Medication List - Last Reconciled 02/24/25 by Wilmar Carr MD atorvastatin 10 mg PO BEDTIME 90 days blood sugar diagnostic (FreeStyle Lite Strips) Use 1 test strip once a day blood-glucose meter (FreeStyle Lite Meter kit) As directed cetirizine 10 mg PO DAILY cholecalciferol (vitamin D3) 50 mcg PO DAILY 90 days fluticasone propionate 50 mcg/actuation (Flonase Allergy Relief) 1 spray intranasal DAILY hydrocortisone 2.5% (Anusol-HC) [address] BID-QID PRN lancets (FreeStyle Lancets) Use 1 lancet once a day lisinopril 2.5 mg PO DAILY 90 days omeprazole 20 mg PO DAILY quetiapine 50 mg PO TID 30 days [facility] Medical History Left knee pain Dysuria Eye discomfort Conjunctivitis, right eye Skin lesion Transaminitis Surgical History History of hand surgery Family History Father Colon cancer Mother Diabetes Mental health disorder Social History Housing: House Alcohol intake: never Patient Tobacco Use Status: Never used Tobacco e-Cigarette/Vaping Use: Never Used Second Hand Smoke Exposure: No service: No Current occupational status: unemployed Cognitive needs: No Hearing needs: No Vision needs: No Physical Exam Vital Signs: BMI result Body Mass Index 26.9 Const Other: Well-nourished well-developed very friendly male awake alert and oriented x3 in no acute distress Extrem Other: Bilateral upper extremity examination shows good capillary refill, no skin lesions noted, normal sensation light touch Right shoulder examination shows decreased range of motion when compared to his left shoulder, 4+ out of 5 strength with supraspinatus testing, positive impingement signs, tenderness over his acromioclavicular joint, no instability Results Reviewed Results Reviewed: X-rays of the patient's right shoulder show severe acromioclavicular joint narrowing, a type 2 acromion, no acute bony abnormalities Assessment & Plan Assessment & Plan (1) Rotator cuff insufficiency of right shoulder: Code(s): M25.311 - Other instability, right shoulder Category: Medical Plan Mr. Marcus presents with progressively worsening right shoulder pain and weakness due to impingement syndrome and possible rotator cuff tearing. Thus, I will send the patient for an MRI of his right shoulder for further evaluation. I will see him back once the MRI is completed to discuss the findings and treatment options. Feel free to call me at any time should questions regarding his orthopedic management arise. Thank you very much for asking me to see this very friendly gentleman. I spent 22 minutes in reviewing the patient's records and imaging studies, seeing the patient and documenting in the medical record. Orders: Orders MR shoulder RT wo con Today M25.311 - Other instability, right shoulder Medications: New celecoxib (Celebrex) 200 mg PO BEDTIME 30 caps 3RF Coding Level of Care Code New Pt Level 3 (54884) Complex EM visit Add On G2211 Diagnoses Rotator cuff insufficiency of right shoulder M25.311
[2025-02-24 08:52] VITALS: BMI 26.9
== END 2025-02-24 09:11 | disposition home or self-care (01) ==
LOC: HO.HOS 08:37
PROVIDERS: PCP Internal Medicine; Visit Provider Orthopaedic Surgery
DX: M25.311 Other instability, right shoulder (principal); M75.41 Impingement syndrome of right shoulder
CPT/HCPCS: 99203; G2211

== ENCOUNTER → 2025-02-24 08:36 | Outpatient (BNVA) | payer OTHER, SELFPAY | PROVIDERS: PCP Internal Medicine; Visit Provider Orthopaedic Surgery | DX: M25.311 Other instability, right shoulder (principal) | CPT/HCPCS: 99202 ==

== ENCOUNTER → 2025-03-05 18:41 | Outpatient (BNV) | payer OTHER, SELFPAY | PROVIDERS: PCP Internal Medicine; Visit Provider Specialist | DX: M75.121 Complete rotator cuff tear or rupture of right shoulder, not specified as traumatic (principal) | CPT/HCPCS: 73221 ==

== ENCOUNTER 2025-03-05 18:42 | Outpatient (REF) | payer OTHER, SELFPAY ==
--- NOTE | ~2025-03-05 | MR_ITS ---
CLINICAL HISTORY: M25.311 - Other instability, right shoulder MR right shoulder without gadolinium Comparison: None Findings: No acute fractures. No pathologic bone lesions. AC joint degenerative changes. Type II acromion. Small glenohumeral joint and subdeltoid bursal effusions. Full-thickness partially retracted supraspinatus tendon tear. The long head of biceps is intact. Glenoid labrum is intact. IMPRESSION: Full-thickness partially retracted supraspinatus tendon tear. This document has been electronically signed by: Guy Poe MD on 03/08/2025 09:00:57
--- OUTSIDE RECORDS SUMMARY | 2025-03-05 18:54 | XMS_ITS | Clinical Summary ---
Author Organization [employer] [facility] it Address [address] [place] [address] Care Team Providers Care Prop Cutter Name Role Phone Unavailable Primary Care Provider [...] 2024 Influenza Vaccine (#1) 2024 RSV Immunization Adult Patie nts (1 - 1-dose 75+ series) 2037 HIB [...]
== END 2025-03-05 18:43 | disposition home or self-care (01) ==
LOC: HO.MRI 18:42
PROVIDERS: PCP Internal Medicine; Visit Provider Orthopaedic Surgery
DX: M25.311 Other instability, right shoulder (principal)
CPT/HCPCS: 73221

== ENCOUNTER 2025-04-01 14:50 | Outpatient (AMB) | payer OTHER, SELFPAY ==
--- NOTE | 2025-04-01 14:52 | A.OFFVIS_ITS ---
Vital Signs 04/01/25 14:53 Height 5 ft 6 in Weight 166 lb BMI 26.8 Intake Visit Reasons: OV-MR shoulder RT review Intake Note: Mr. Marcus is a 64-year-old xghfe-xoey-lievycli male who presents with complaints of progressively worsening right shoulder pain and weakness. The patient describes his pain as sharp in nature. Most of the pain is along the superior and lateral aspects of his shoulder. He did injure his right shoulder while lifting a heavy object approximately 1 year ago. He has failed the last 6 weeks of conservative treatment which has consisted of a home exercise program, physical therapy exercises, Tylenol and anti-inflammatory medicines as well as muscle relaxants. The patient states that he has difficulty lifting his right hand above shoulder height. At this point his right shoulder pain and weakness are interfering with his activities of daily living and his ability to sleep well through the night. Clinical Documentation Developer Required: Yes Clinical Documentation Developer Language: Business Development Assistant Name: Magen([id number]) Allergies Penicillins [PENICILLINS] Allergy (Intermediate, Verified 04/01/25 14:53) RASH [facility] Medical History Left knee pain Dysuria Eye discomfort Conjunctivitis, right eye Skin lesion Transaminitis Surgical History History of hand surgery Family History Father Colon cancer Mother Diabetes Mental health disorder Social History Housing: House Alcohol intake: never Patient Tobacco Use Status: Never used Tobacco e-Cigarette/Vaping Use: Never Used Second Hand Smoke Exposure: No service: No Current occupational status: unemployed Cognitive needs: No Hearing needs: No Vision needs: No Physical Exam Vital Signs: BMI result Body Mass Index 26.8 Const Other: Well-nourished well-developed very friendly male awake alert and oriented x3 in no acute distress Extrem Other: Bilateral upper extremity examination shows good capillary refill, no skin lesions noted, normal sensation light touch Right shoulder examination shows slightly decreased range of motion when compared to his left shoulder, 4/5 strength with supraspinatus testing, positive impingement signs, tenderness over his acromioclavicular joint, no instability Results Reviewed Results Reviewed: MRI of the patient's right shoulder show severe acromioclavicular joint narrowing, a type 2 acromion, a small full-thickness tear of the supraspinatus tendon Assessment & Plan Assessment & Plan (1) Rotator cuff insufficiency of right shoulder: Code(s): M25.311 - Other instability, right shoulder Category: Medical Plan Mr. Marcus presents with right shoulder pain and weakness due to impingement syndrome, acromioclavicular joint arthritis and a small full-thickness rotator cuff tear. I had a lengthy discussion with the patient regarding the treatment options. At this point he appears to be failing continued non operative treatments. The risks and benefits of right shoulder surgery were discussed at length with the patient. The patient is interested in proceeding with surgery later this year. Surgery will involve right shoulder arthroscopic distal cla vicle excision, right shoulder arthroscopic acromioplasty, and right shoulder mini open rotator cuff repair. The patient will contact my office to pick a surgery date when he chooses to do so. He will continue with his range motion exercises in the meantime to prevent stiffness. Feel free to call me at any time should questions regarding his orthopedic management arise. I spent 22 minutes in reviewing the patient's records and imaging studies, seeing the patient and documenting in the medical record. Coding Level of Care Code Est Pt Level 3 (75641) Complex EM visit Add On G2211 Diagnoses Rotator cuff insufficiency of right shoulder M25.311
[2025-04-01 14:53] VITALS: BMI 26.8
--- OUTSIDE RECORDS SUMMARY | 2025-04-01 16:50 | XMS_ITS | Clinical Summary ---
Author Organization [employer] [facility] it Address [address] [place] [address] Care Team Providers Care Pet Counselor Name Role Phone Unavailable Primary Care Provider [...] - 2023-2 5 season) 2024 Influenza Vaccine (Season Ended) 2025 RSV Immunization Adult Patie nts (1 - [...] age to complete this topic Meningococcal B Vaccine Aged Out No l onger eligible based on patient's age to complete [...]
== END 2025-04-01 15:14 | disposition home or self-care (01) ==
LOC: HO.HOS 14:50
PROVIDERS: PCP Internal Medicine; Visit Provider Orthopaedic Surgery
DX: M25.311 Other instability, right shoulder (principal)
CPT/HCPCS: 99213; G2211

== ENCOUNTER → 2025-04-01 14:50 | Outpatient (BNVA) | payer OTHER, SELFPAY | PROVIDERS: PCP Internal Medicine; Visit Provider Orthopaedic Surgery | DX: M25.311 Other instability, right shoulder (principal) | CPT/HCPCS: 99212 ==

== ENCOUNTER 2025-09-17 16:03 | Outpatient (AMB) | payer OTHER, SELFPAY ==
--- NOTE | 2025-09-17 16:09 | A.OFFPC_ITS ---
Vital Signs 09/17/25 16:10 Height 5 ft 6 in Weight 164 lb 4 oz BMI 26.5 BP 128/80 Blood Pressure Location Lt brachial Position Sitting Pulse 76 Pulse Source Pulse Oximeter Temp 97.3 F Temp Source Temporal Artery Scan Pulse Oximetry (%) 98 Oxygen Delivery Method Room Air Intake Visit Reasons: muscle pain Stained Glass Glazier Required: Yes Stained Glass Glazier Language: Japanese Information Interpreted: non-clinical & clinical Utility Sales And Service Manager: Not Required per policy Accompanied by: Self / Same As Patient Allergies Penicillins (PENICILLINS) Allergy (Intermediate, Verified 09/17/25 16:10) RASH Medication List - Last Reconciled 09/17/25 by Christine Barr MD atorvastatin 10 mg PO BEDTIME 90 days blood sugar diagnostic (FreeStyle Lite Strips) Use 1 test strip once a day blood-glucose meter (FreeStyle Lite Meter kit) As directed celecoxib (Celebrex) 200 mg PO BEDTIME cetirizine 10 mg PO DAILY cholecalciferol (vitamin D3) 50 mcg PO DAILY 90 days fluticasone propionate 50 mcg/actuation 1 spray intranasal DAILY hydrocortisone 2.5% (Anusol-HC) 1 appl [place] BID-QID PRN lancets (FreeStyle Lancets) Use 1 lancet once a day lisinopril 2.5 mg PO DAILY 90 days omeprazole 20 mg PO DAILY quetiapine 50 mg PO TID 30 days Tobacco use date assessed: 09/17/25 Dental Screening Dental Screen Date: 02/05/25 HPI HPI Comments History of Present Illness Details The patient is a 64-year-old male presenting with musculoskeletal pain. He reports muscle pain in the arms and back for three to four months, mainly at n ight, which disrupts his sleep. Daytime activities seem to alleviate the pain slightly. The patient has used Tylenol and patches without relief. The pain worsens at night and affects arm mobility. [facility] Medical History Left knee pain Dysuria Eye discomfort Conjunctivitis, right eye Skin lesion Transaminitis Surgical History History of hand surgery Family History Father Colon cancer Mother Diabetes Mental health disorder Social History Housing: House Alcohol intake: never Patient Tobacco Use Status: Never used Tobacco e-Cigarette/Vaping Use: Never Used Second Hand Smoke Exposure: No service: No Current occupational status: unemployed Cognitive needs: No Hearing needs: No Vision needs: No Questionnaire PHQ-9 Over the last 2 weeks, how often have you been bothered by any of the following problems? 1. Little interest or pleasure in doing things: not at all 2. Feeling down, depressed, or hopeless: not at all 3. Trouble falling or staying asleep, or sleeping too much: several days 4. Feeling tired or having little energy: several days 5. Poor appetite or overeating: not at all 6. Feeling bad about yourself - or that you are a failure or have let yourself or your family down: not at all 7. Trouble concentrating on things, such as reading the newspaper or watching television: not at all 8. Moving or speaking so slowly that other people could have noticed. Or the opposite - being so fidgety or restless that you have been moving around a lot more than usual: not at all 9. Thoughts that you would be better off or of hurting yourself in some way: not at all Total score: 2 Depression Screening Interpretation: Positive Depression Screening Done: Yes Source: Developed by Drs. Constantino Resendez, Marah Zambrano, Kyle Astorga and colleagues, with an educational thu from [employer]. Thrive Questionnaire Date Thrive assessed: 02/05/25 I am a: Patient What is your living situation today?: I have a steady place to live Within the past 12 months, did the food you bought not last and you didn't have the money to get more?: Never true Within the past 12 months, did you worry whether your food would run out before you got money to buy more?: Never true Do you have trouble paying for medicines?: No Do you have trouble getting transportation to medical appointments?: No Do you have trouble paying your heating and electricity bill?: No Do you have trouble taking care of your child, family member or friend?: I choose not to answer this question Do you have trouble with day-to-day activities such as bathing, preparing meals, shopping, managing finances, etc.?: I choose not to answer this question Are you currently unemployed and looking for a job?: I choose not to answer this question Are you interested in more education?: I choose not to answer this question Please select the resources that you would like help with: None Currently or been in a relationship where the following occur: No concerns reported THRIVE Score: 0 AUDIT C Alcohol Use Questionnaire (AUDIT-C) 1. How often do you have a drink containing alcohol?: Never Total Score: 0 DEZ-7 AMB Questionnaire DEZ-7 Date DEZ - 7 assessed: 02/05/25 Feeling nervous, anxious, or on edge: 1 = Several days Not being able to stop or control worryin = Several days Worrying too much about different things: 1 = Several days Trouble relaxin = Several days Being so restless that it is hard to sit still: 1 = Several days Becoming easily annoyed or irritable: 1 = Several days Feeling afraid as if something awful might happen: 1 = Several days Total DEZ-7 score (0-4 normal; 5-9 mild; 10-14 moderate; 15-21 severe): 7 Source: Developed by Drs. Constantino Resendez, Marah Zambrano, Kyle Astorga and colleagues, with an educational thu from [employer]. Review of Systems Const Details: Positives besides what was mentioned in HPI are in BOLD Constitutional: No Weight Change, No Fever, No Chills, No Night Sweats, No Fatigue, No Malaise ENT/Mouth: No Hearing Changes, No Ear Pain, No Nasal Congestion, No Sinus Pain, No Hoarseness, No sore throat, No Rhinorrhea, No Swallowing Difficulty Eyes: No Eye Pain, No Swelling, No Redness, No Foreign Body, No Discharge, No Vision Changes Cardiovascular: No Chest Pain, No SOB, No PND, No Dyspnea on Exertion, No Orthopnea, No Claudication, No Edema, No Palpitations Respiratory: No Cough, No Sputum, No Wheezing, No Smoke Exposure, No Dyspnea Gastrointestinal: No Nausea, No Vomiting, No Diarrhea, No Constipation, No Pain, No Heartburn, No Anorexia, No Dysphagia, No Hematochezia, No Melena, No Flatulence, No Jaundice Genitourinary: No Dysmenorrhea, No DUB, No Dyspareunia, No Dysuria, No Urinary Frequency, No Hematuria, No Urinary Incontinence, No Urgency, No Flank Pain, No Urinary Flow Changes, No Hesitancy Musculoskeletal: No Arthralgias, No Myalgias, No Joint Swelling, No Joint Stiffness, No Back Pain, No Neck Pain, No Injury History Skin: No Skin Lesions, No Pruritis, No Hair Changes, No Breast/Skin Changes, No Nipple Discharge Neuro: No Weakness, No Numbness, No Paresthesias, No Loss of Consciousness, No Syncope, No Dizziness, No Headache, No Coordination Changes, No Recent Falls Psych: No Anxiety/Panic, No Depression, No Insomnia, No Personality Changes, No Delusions, No Rumination, No SI/HI/AH/VH, No Social Issues, No Memory Changes, No Violence/Abuse Hx., No Eating Concerns Heme/Lymph: No Bruising, No Bleeding, No Transfusions History, No Lymphadenopathy Endocrine: No Polyuria, No Polydipsia, No Temperature Intolerance Physical exam (Primary Care) Vital Signs: Last Vital Signs Temp 97.3 F 09/17/25 16:10 Pulse 76 09/17/25 16:10 BP 128/80 09/17/25 16:10 Pulse Ox 98 09/17/25 16:10 Oxygen Delivery Method Room Air 09/17/25 16:10 BMI result Body Mass Index 26.5 Tobacco/Smoking Status: Tobacco use Status Tobacco use date assessed 09/17/25 09/17/25 16:14 Patient Tobacco Use Status Never used Tobacco 09/17/25 16:14 e-Cigarette/Vaping Use Never Used 09/17/25 16:14 PHQ-9: PHQ-9 Score PHQ-9: Total score 2 09/17/25 16:14 Depression Screening Interpretation: Positive Thrive Assessment: Date of Thrive Assessment Date Thrive assessed 02/05/25 09/17/25 16:14 Currently or been in a relationship where the following occur: No concerns reported Const Other: Pertinent findings are in BOLD GENERAL APPEARANCE NAD, activity normal for age, well developed/ well nourished, no cyanosis, pallor, or diaphoresis. EYES lids/conjunctiva normal. EARS/NOSE/THROAT Mucous membranes moist, nares normal, lips/teeth normal uvula midline without oral pharyngeal erythema, exudate or swelling TMs normal bilaterally. No lymphangitis/lymphedema. HEAD/NECK normocephalic atraumatic, no facial trauma, neck is supple. RESPIRATORY respiratory effort normal, speaks in full sentences, no tripod position, no accessory muscle use. Lungs clear to auscultation without rhonchi, wheezes, rales CARDIAC Regular rate and rhythm, no edema. ABDOMINAL Soft, ND/NT. No evidence of fluid wave. No pulsatile masses on exam, rebound tenderness, High sign or pain over Mcburney's point. MUSCLES/EXTREMITIES No abnormal range of motion, no swelling. SKIN Warm, pink and dry. No rashes, dermatoses, petechiae or lesions. NEUROLOGICAL Speech is clear and appropriate. Normal level of consciousness. Gait and coordination are normal. 5/5 strength in all extremities. PSYCH Normal mood and affect. Judgement/competence is appropriate Coding Level of Care Code Est Pt Level 3 (85393) Diagnoses Muscle pain M79.10 Time Spent (min) 20 Assessment & Plan Assessment & Plan (1) Muscle pain: Code(s): M79.10 - Myalgia, unspecified site Category: Medical Plan: - Prescribed cyclobenzaprine 5 mg at bedtime to alleviate nocturnal pain and improve sleep quality. - Advised to monitor pain relief and contact the clinic if symptoms persist. Plan I discussed with the patient the use of cyclobenzaprine 5 mg at bedtime to help manage his musculoskeletal pain, particularly at night. I advised him to observe the effectiveness of the medication and to reach out if there is no improvement. Medications: New cyclobenzaprine 5 mg PO BEDTIME PRN 30 tabs 3RF muscle spasm Refilled quetiapine 50 mg PO TID 90 tabs 1RF 30 days lisinopril 2.5 mg PO DAILY 90 tabs 1RF 90 days I10 - Essential (primary) hypertension hydrocortisone 2.5% (Anusol-HC) 1 appl [place] BID-QID PRN 30 grams 4RF pain fluticasone propionate 50 mcg/actuation 1 spray intranasal DAILY 32 mL 1RF R09.81 - Nasal congestion
[2025-09-17 16:10] VITALS: BP 128/80; PULSE 76; TEMP 36.3; O2SAT 98; BMI 26.5
--- OUTSIDE RECORDS SUMMARY | 2025-09-17 18:20 | XMS_ITS | Clinical Summary ---
Author Organization [employer] [facility] ity Address [address] [place] [address] Care Team Providers Care Junior Php Developer Name Role Phone Unavailable Primary Care Provider [...] 2012 Zoster Vaccines (1 of 2) 2012 Depression Screening 12/02/2024 COVID-19 Vaccine (1 - 2023-2 5 season) 2025 Influenza Vaccine (#1) 2025 RSV Immunization Adult Patie nts (1 [...]
--- OUTSIDE RECORDS SUMMARY | 2025-09-17 18:20 | XMS_ITS | Clinical Summary ---
Author Organization [facility] Address [address] [place] [id number] Phone Care Team Providers Care Blood Bank Assistant Name Role Phone Ame Cervantes MD Primary Care Provid er Allergies Active Allergy Reactions Criticality Noted Date Comments Penicillins Erythema Multiforme 01/09/2021 Medications QUEtiapine (SEROQUEL XR) 50 mg Tb24 Take 50 mg by mouth daily. Active Active Problems Problem Noted Date Diagnosed Date Basal cell carcinoma (BCC) of lateral canthus of left eye 02/16/2021 Family History Medical History Relation Comments Prostate cancer Father Cancer Mother Relation Status Comments Father Mother Alive Social History Tobacco Use Types Packs/Day Years Used Date Smoking Tobacco: Never Smokeless Tobacco: Never Alcohol Use Standard Drinks/Week Comments Not Currently 0 (1 standard drink = 0.6 oz pur e alcohol) Education Answer Date Recorded Are you interested in more education? Not on aniya e 03/29/2023 Are you concerned about learning? Not on file 03/29/2023 No 03/29/2023 No 03/29/2023 Digital Access Answer Date Recorded No 04/27/2023 No 04/27/2023 No 04/27/2023 Reliable internet access at home? Not on file 04/27/2023 Device with a working camera? Not on file Sex and Gender Information Value Date Recorded Sex Assigned at Not on file Legal Sex Male 2:59 PM EST Gender Identity Not on file Sexual Orientation Not on file Last Filed Vital Signs Vital Sign Reading Time Taken Comments Blood Pressure 136/92 01/09/2021 10:40 AM EST Pulse 76 01/09/2021 10:40 AM EST Temperature - - Respiratory Rate - - Oxygen Saturation - - Inhaled Oxygen Concentration - - Weight 86.7 kg (191 lb 3.2 oz) 01/09/2021 10:40 AM EST Height 162.6 cm (5' 4 ) 01/09/2021 10:40 AM EST Body Mass Index 32.82 01/09/2021 10:40 AM EST Plan of Treatment Health Maintenance Due Date Last Done Comments Adult Td,Tdap Booster 1962 LIPID PANEL 1962 DEPRESSION SCREENING 1974 HEPATITIS C SCREENING 1980 HIV ONE-TIME SCREENING (18-6 5 YEARS) 1980 COLOGUARD 2007 COLONOSCOPY 2007 COLORECTAL CANCER SCREENING 2007 FIT TEST 2007 FOBT 2007 SIGMOIDOSCOPY 2007 VIRTUAL COLONOSCOPY 2007 PNEUMOCOCCAL VACCINES (50+ years) (1 of 1 - PCV) 2012 ZOSTER VACCINES (1 of 2) 2012 INFLUENZA VACCINE (#1) 2025 10/31/2020 COVID-19 VACCINE (3 - 2024-2 6 season) 2025 05/01/2021, 04/02/2021 RSV VACCINE (1 - 1-dose 75+ series) 2037 SMOKING STATUS SCREENING (On ce After 26 Yrs) Completed 01/09/2021 HEPATITIS A VACCINES Aged Out No long er eligible based on patient's age to complete this topic HIB VACCINES Aged Out No longer eligi ble based on patient's age to complete this topic MENINGOCOCCAL VACCINES (ACWY) Aged Out No longer eligible based on patient's age to complete this topic MENINGOCOCCAL VACCINES (B) Aged Out N o longer eligible based on patient's age to complete this topic Medical Devices Not on file Insurance [facility] [address] [address] [place] [address] [address] [place] [place] [address] [address] [place] [place] [address] [address] [employer] [facility] [employer] Care Teams Blood Bank Assistant Relationship Specialty Start Date End Date Ame Cervantes MD [address] [place] [address] PCP - General Internal Medicine 12/29/20 Additional Source Comments The information contained in this document represents components of the legal health record. It is not the complete legal health record.[facility]
== END 2025-09-17 16:46 | disposition home or self-care (01) ==
LOC: HO.HMCH 16:04
PROVIDERS: PCP Internal Medicine; Visit Provider Internal Medicine
DX: M79.10 Myalgia, unspecified site (principal)

== ENCOUNTER → 2025-09-17 16:03 | Outpatient (BNVA) | payer OTHER, SELFPAY | PROVIDERS: PCP Internal Medicine; Visit Provider Internal Medicine | DX: M79.18 Myalgia, other site (principal) | CPT/HCPCS: 99212 ==

== ENCOUNTER 2025-10-01 16:33 | Outpatient (AMB) | payer OTHER, SELFPAY ==
--- OUTSIDE RECORDS SUMMARY | 2025-10-01 16:37 | XMS_ITS | Clinical Summary ---
Author Organization [facility] ity Address [address] [place] [address] Care Team Providers Care General Engineer Name Role Phone Unavailable Primary Care Provider [...]
--- OUTSIDE RECORDS SUMMARY | 2025-10-01 16:37 | XMS_ITS | Clinical Summary ---
Author Organization [facility] Address [address] [place] [phone] Phone Care Team Providers Care Director Community Health Nursing Name Role Phone Ame Cervantes MD Primary [...] topic Medical Devices Not on file Insurance [facility] [place] [address] [place] [address] [place] [address] [place] [address] [place] [address] [place] [address] [place] [address] [place] [address] [place] [address] [place] [address] [place] [address] [place] [address] ACO [facility] ACO Care Teams Director Community Health Nursing Relationship Specialty Start Date End Date Ame Cervantes MD [address] [place] [address] PCP - General Internal Medicine 12/29/20 Additional Source Comments The information contained in this document represents components of the legal health record. It is not the complete legal health record.[facility]
[2025-10-01 16:42] VITALS: BP 130/70; PULSE 92; RESP 18; TEMP 36.3; O2SAT 96; BMI 27.0
--- NOTE | 2025-10-01 16:42 | MHC.PC.OV ---
Vital Signs 10/01/25 16:42 Height 5 ft 6 in Weight 167 lb 2 oz BMI 27.0 BP 130/70 Blood Pressure Location Lt brachial Position Sitting Respiration 18 Pulse 92 Pulse Source Pulse Oximeter Temp 97.3 F Temp Source Temporal Artery Scan Pulse Oximetry (%) 96 Oxygen Delivery Method Room Air Intake Visit Reasons: muscle spasms Stop Attacher Required: No Accompanied by: Self / Same As Patient Allergies Penicillins (PENICILLINS) Allergy (Intermediate, Verified 10/01/25 16:44) RASH Medication List - Last Reconciled 10/01/25 by Christine Barr MD blood sugar diagnostic (FreeStyle Lite Strips) Use 1 test strip once a day blood-glucose meter (FreeStyle Lite Meter kit) As directed cetirizine 10 mg PO DAILY cholecalciferol (vitamin D3) 50 mcg PO DAILY 90 days cyclobenzaprine 10 mg (2 x 5 mg) PO BID PRN fluticasone propionate 50 mcg/actuation 1 spray intranasal DAILY hydrocortisone 2.5% (Anusol-HC) 1 appl RI BID-QID PRN lancets (FreeStyle Lancets) Use 1 lancet once a day lisinopril 2.5 mg PO DAILY 90 days naproxen 375 mg PO BID PRN 30 days omeprazole 20 mg PO DAILY quetiapine 50 mg PO TID 30 days Tobacco use date assessed: 10/01/25 Dental Screening Dental Screen Date: 10/01/25 Did you have a dental visit in the last 12 months?: No Did you have a dental problem in the last 6 months where you did not have access to dental care?: No Was dental information given to patient?: No HPI HPI Comments History of Present Illness Details The patient is a 64-year-old male presenting with a four-month history of muscle spasms and bilateral shoulder pain that has been unresponsive to medication. The pain initially began only in the right shoulder, potentially after carrying heavy items, and has since progressed to involve both shoulders. The patient describes the pain as a burning sensation that is significantly worse at night when lying down, which disrupts his sleep. He also experiences discomfort when stretching his arms. He notes that the pain radiates slightly to his back. An MRI of the right shoulder performed in March of this year revealed a full-thickness partially retracted supraspinatus tendon tear. Previous treatments, including cyclobenzaprine, Tylenol, and ibuprofen, have not provided relief. He stopped taking ibuprofen because it was ineffective. The patient's past medical history includes depression, hypertension, and acid reflux, for which he takes medication. He is also prescribed atorvastatin for high cholesterol but reports not taking it. He reports he is running out of his blood pressure medication, vitamins, and nasal spray. [facility] Medical History Left knee pain Dysuria Eye discomfort Conjunctivitis, right eye Skin lesion Transaminitis Surgical History History of hand surgery Family History Father Colon cancer Mother Diabetes Mental health disorder Social History Housing: House Alcohol intake: never Patient Tobacco Use Status: Never used Tobacco e-Cigarette/Vaping Use: Never Used Second Hand Smoke Exposure: No service: No Current occupational status: unemployed Cognitive needs: No Hearing needs: No Vision needs: No Questionnaire Thrive Questionnaire Date Thrive assessed: 09/17/25 I am a: Patient What is your living situation today?: I have a steady place to live Within the past 12 months, did the food you bought not last and you didn't have the money to get more?: Never true Within the past 12 months, did you worry whether your food would run out before you got money to buy more?: Never true Do you have trouble paying for medicines?: No Do you have trouble getting transportation to medical appointments?: No Do you have trouble paying your heating and electricity bill?: No Do you have trouble taking care of your child, family member or friend?: I choose not to answer this question Do you have trouble with day-to-day activities such as bathing, preparing meals, shopping, managing finances, etc.?: I choose not to answer this question Are you currently unemployed and looking for a job?: I choose not to answer this question Are you interested in more education?: I choose not to answer this question Please select the resources that you would like help with: None Currently or been in a relationship where the following occur: No concerns reported THRIVE Score: 0 DEZ-7 AMB Questionnaire DEZ-7 Date DEZ - 7 assessed: 02/05/25 Source: Developed by Drs. Constantino Resendez, Marah Zambrano, Kyle Astorga and colleagues, with an educational thu from [employer]. Review of Systems Const Details: As per HPI. Physical exam (Primary Care) Vital Signs: Last Vital Signs Temp 97.3 F 10/01/25 16:42 Pulse 92 10/01/25 16:42 Resp 18 10/01/25 16:42 BP 130/70 10/01/25 16:42 Pulse Ox 96 10/01/25 16:42 Oxygen Delivery Method Room Air 10/01/25 16:42 BMI result Body Mass Index 27.0 Tobacco/Smoking Status: Tobacco use Status Tobacco use date assessed 10/01/25 10/01/25 16:56 Patient Tobacco Use Status Never used Tobacco 10/01/25 16:43 e-Cigarette/Vaping Use Never Used 10/01/25 16:43 Thrive Assessment: Date of Thrive Assessment Date Thrive assessed 09/17/25 10/01/25 16:43 Currently or been in a relationship where the following occur: No concerns reported Const Other: Pertinent findings are in BOLD GENERAL APPEARANCE NAD, activity normal for age, well developed/ well nourished, no cyanosis, pallor, or diaphoresis. EYES lids/conjunctiva normal. EARS/NOSE/THROAT Mucous membranes moist, nares normal, lips/teeth normal uvula midline without oral pharyngeal erythema, exudate or swelling TMs normal bilaterally. No lymphangitis/lymphedema. HEAD/NECK normocephalic atraumatic, no facial trauma, neck is supple. RESPIRATORY respiratory effort normal, speaks in full sentences, no tripod position, no accessory muscle use. Lungs clear to auscultation without rhonchi, wheezes, rales CARDIAC Regular rate and rhythm, no edema. ABDOMINAL Soft, ND/NT. No evidence of fluid wave. No pulsatile masses on exam, rebound tenderness, High sign or pain over Mcburney's point. MUSCLES/EXTREMITIES No abnormal range of motion, no swelling. No limitation due to pain during exam. SKIN Warm, pink and dry. No rashes, dermatoses, petechiae or lesions. NEUROLOGICAL Speech is clear and appropriate. Normal level of consciousness. Gait and coordination are normal. 5/5 strength in all extremities. PSYCH Normal mood and affect. Judgement/competence is appropriate Coding Level of Care Code Tele Est Pt Level 4 (50672) Diagnoses Muscle pain M79.10 Hyperlipidemia LDL goal <70 E78.5 Time Spent (min) 30 Assessment & Plan Assessment & Plan (1) Muscle pain: Comment: Shoulder bilateral. Code(s): M79.10 - Myalgia, unspecified site Category: Medical Plan: - The patient's bilateral shoulder pain has not responded to conservative medication management. - Given the bilateral nature of the symptoms, an autoimmune process is being considered. - An urgent referral will be placed to Rheumatology for further evaluation. - Blood work will be ordered to rule out Rheumatologic causes of the pain. - An MRI of the left shoulder will be ordered to assess for suspected bilateral tears. - For symptom management, the patient is advised to continue cyclobenzaprine (Flexeril) and will be prescribed naproxen to be taken twice a day, especially at night. - A follow-up visit is scheduled in two weeks to review the results of the blood work. - Patient was not taking his atorvastatin so statin induced myopathy is less likely. (2) Hyperlipidemia LDL goal <70: Code(s): E78.5 - Hyperlipidemia, unspecified Category: Medical Plan: - The patient reports non-adherence to his prescribed atorvastatin. - No changes to the management plan were made at this visit. Plan I discussed with the patient that his persistent muscle pain, which has not responded to medication, warrants further investigation for potential autoimmune diseases. I explained that we would be ordering blood tests to explore this possibility. I also informed him that while his previous right shoulder MRI showed a tear, it does not explain his current left-sided pain, and therefore, we will order an MRI of the left shoulder. For pain management, I advised him to continue taking Flexeril and added a prescription for naproxen, instructing him to take it twice a day, particularly at night when his pain is worse. I have placed an urgent referral to a policy writer sales for a specialist consultation. We will have a follow-up appointment in two weeks to review the blood work results, and I stressed the importance of completing the labs before this next visit. Orders: Orders Erythrocyte Sedimentation Rate 10/01/25 M79.10 - Myalgia, unspecified site MSA Panel Extended 10/01/25 M79.10 - Myalgia, unspecified site SHELDON Reflex Titer and Pattern 10/01/25 M79.10 - Myalgia, unspecified site CALLI 1 Antibody 10/01/25 M.10 - Myalgia, unspecified site MR shoulder LT wo con 10/01/25 M25.519 - Pain in unspecified shoulder CK, Total+Isoenzymes, Serum 10/01/25 M79.10 - Myalgia, unspecified site Aldolase 10/01/25 M.10 - Myalgia, unspecified site CRP High Sensitivity 10/01/25 M.10 - Myalgia, unspecified site Scleroderma 70 Antibody 10/01/25 M.10 - Myalgia, unspecified site Referrals Rheumatology Referral M.10 - Myalgia, unspecified site Medications: New naproxen 375 mg PO BID PRN 60 tabs 3RF pain 30 days melatonin 5 mg PO DAILY 30 caps 3RF Refilled lisinopril 2.5 mg PO DAILY 90 tabs 1RF 90 days I10 - Essential (primary) hypertension hydrocortisone 2.5% (Anusol-HC) 1 appl RI BID-QID PRN 30 grams 4RF pain Discontinued celecoxib (Celebrex) Discontinued Reason: Doctor's Order 200 mg PO BEDTIME 30 caps 3RF
== END 2025-10-01 17:16 | disposition home or self-care (01) ==
LOC: HO.HMCH 16:34
PROVIDERS: PCP Internal Medicine; Visit Provider Internal Medicine
DX: M79.10 Myalgia, unspecified site (principal); E78.5 Hyperlipidemia, unspecified

== ENCOUNTER 2025-10-08 09:04 | Outpatient (REF) | payer OTHER, SELFPAY ==
--- OUTSIDE RECORDS SUMMARY | 2025-10-08 10:06 | XMS_ITS | Clinical Summary ---
Author Organization [facility] it[facility] Address [address] [place] [address] Care Team Providers Care Pastrycook'S Assistant Name Role Phone Unavailable Primary Care Provider [...]
--- OUTSIDE RECORDS SUMMARY | 2025-10-08 10:06 | XMS_ITS | Clinical Summary ---
Author Organization [facility] Address [address] [place] [phone] Phone Care Team Providers Care Farm Facility Manager Name Role Phone Ame Cervantes MD Primary [...] topic Medical Devices Not on file Insurance [facility] [place] [address] [place] [address] [place] [address] [place] [address] [address] [place] [address] [address] [place] [address] [address] [place] [address] [place] [address] [place] [address] ACO [facility] ACO Care Teams Farm Facility Manager Relationship Specialty Start Date End Date Ame Cervantes MD [address] [place] [address] PCP - General Internal Medicine 12/29/20 Additional Source Comments The information contained in this document represents components of the legal health record. It is not the complete legal health record.[facility]
[2025-10-12 16:03] LABS: Anti Nuclear Antibody Screen NEGATIVE (NEGATIVE)
[2025-10-12 21:23] LABS: CK-BB None Detected (None Detected); CK-MB 3 % (<5); CK-MM 93 % (95-100); Creatine Kinase Isoenzyme Itrp MACRO CK TYPE 1; Creatine Kinase,Total,Serum 324 U/L (22-308)
[2025-10-16 13:09] LABS: Cytosolic 5'nuc 1A Ab IgG 5 Units; HMGCR Ab IgG <2 CU (<20); MDA5 Ab <11 SI (<11); NXP-2 (MJ) Ab <11 SI (<11); SRP Ab <11 SI (<11)
== END 2025-10-08 09:05 | disposition home or self-care (01) ==
LOC: HO.LAB 09:04
PROVIDERS: PCP Internal Medicine; Visit Provider Internal Medicine
DX: M79.10 Myalgia, unspecified site (principal)
CPT/HCPCS: 36415; 82085; 82552; 83516; 83520; 84182; 85652; 86038; 86235